=== PATIENT | female | born 1985 | race Caucasian/White ===

== ENCOUNTER → 2018-09-22 16:12 | Outpatient (CLI) | payer OTHER, SELFPAY ==
[2018-09-22 16:09] VITALS: BMI 42.9
[2018-09-22 16:31] LABS: Absolute Lymphocyte Count 1.69 X10^3/ul (0.83-4.51); Absolute Neutrophil Count 9.5 X10^3/uL (2.0-7.7); Basophil# 0.02 X10^3/uL; Basophil% 0.2 % (0-1); Eosinophil# 0.12 X10^3/uL; Hematocrit 39.7 % (37-47); Hemoglobin 12.9 g/dl (12.0-15.0); Lymphocyte # 1.69 X10^3/ul (4.0); Lymphocyte % 13.8 % (19-41); Mean Corp Hgb Conc 32.5 g/gl (32-36); Mean Corpuscular Hgb 25.3 pg (27.0-32.0); Mean Corpuscular Volume 77.8 fL (81-99); Mean Platelet Vol. 12.9 fl (6.2-12.0); Monocyte# 0.94 X10^3/uL; Monocyte% 7.7 % (0-10); Neutrophil # 9.48 X10^3/uL (2.7-7.7); Neutrophil % 77.1 % (47-70); Platelet Count 225 K/mm3 (150-450); RBC Distribution Width CV 14.1 % (11.6-14.6); RBC Distribution Width SD 38.8 fl (35.1-43.9); White Blood Count 12.3 K/mm3 (4.4-11.0)
[2018-09-22 16:32] LABS: POSITIVE COUNT NO; POSITIVE DIFFERENTIAL NO; POSITIVE MORPHOLOGY NO
[2018-09-22 16:51] LABS: Glucose Challenge Gest 1H 50g 98 mg/dL (70-140)
[2018-09-22 17:42] LABS: HIV - WCH Non-Reactive (Nonreactive); Rubella IgG 139.5 IU/mL
[2018-09-22 19:16] LABS: Chlamydia Trachomatis by PCR Negative (Negative); Neisserai gonorrhoeae by PCR Negative (Negative); Probe Check PASS; Sample Adequacy Control PASS; Specimen Processing Control PASS
[2018-09-24 01:45] LABS: Rapid Plasmin Reagin (RPR) NONREACTIVE (NONREACTIVE)
[2018-09-24 12:26] LABS: HEPATITIS B SURFACE AG Negative (Negative)
[2018-09-27 10:21] LABS: HPV APTIMA, High Risk Negative (Negative)
== END ==
PROVIDERS: Family Provider Family Medicine; PCP Family Medicine; Referring Provider Obstetrics & Gynecology; Visit Provider Obstetrics & Gynecology
DX: O99.210 Obesity complicating pregnancy, unspecified trimester (principal); Z3A.00 Weeks of gestation of pregnancy not specified; Z12.4 Encounter for screening for malignant neoplasm of cervix
CPT/HCPCS: 36415; 82950; 85025; 86592; 86703; 86762; 86850; 86900; 87086; 87088; 87340; 87491; 87591; 87624; 88175; G0145

== ENCOUNTER → 2018-12-14 11:45 | Outpatient (CLI) | payer OTHER, SELFPAY ==
[2018-12-14 11:37] VITALS: BMI 42.9
== END ==
PROVIDERS: Family Provider Family Medicine; PCP Family Medicine; Referring Provider Nurse Practitioner Women's Health; Visit Provider Nurse Practitioner Women's Health
DX: Z34.90 Encounter for supervision of normal pregnancy, unspecified, unspecified trimester (principal)
CPT/HCPCS: 36415

== ENCOUNTER → 2019-02-07 11:52 | Outpatient (CLI) | payer OTHER, SELFPAY ==
[2019-02-07 11:08] VITALS: BMI 42.9
[2019-02-07 12:41] LABS: Absolute Lymphocyte Count 1.68 X10^3/uL (0.83-4.51); Absolute Neutrophil Count 8.5 X10^3/uL (2.0-7.7); Basophil# 0.03 X10^3/uL; Basophil% 0.3 % (0-1); Eosinophil# 0.12 X10^3/uL; Eosinophils% 1.1 % (0-5); Hematocrit 33.8 % (37-47); Hemoglobin 10.9 g/dL (12.0-15.0); Lymphocyte # 1.68 X10^3/ul (4.0); Lymphocyte % 15.4 % (19-41); Mean Corp Hgb Conc 32.2 g/dL (32-36); Mean Corpuscular Hgb 26.5 pg (27.0-32.0); Mean Platelet Vol. 12.4 fl (6.2-12.0); Monocyte# 0.55 X10^3/uL; NRBC Flagged by Analyzer 0 % (0-5); Neutrophil % 77.8 % (47-70); Platelet Count 257 K/mm3 (150-450); RBC Distribution Width CV 12.9 % (11.6-14.6); RBC Distribution Width SD 38.5 fl (35.1-43.9); Red Blood Count 4.12 M/mm3 (4.2-5.4); White Blood Count 10.9 K/mm3 (4.4-11.0)
[2019-02-07 12:45] LABS: Glucose Challenge Gest 1H 50g 98 mg/dL (70-140)
== END ==
PROVIDERS: Nurse Practitioner Women's Health; Family Provider Family Medicine; PCP Family Medicine; Referring Provider Obstetrics & Gynecology; Visit Provider Obstetrics & Gynecology
DX: O09.90 Supervision of high risk pregnancy, unspecified, unspecified trimester (principal); Z3A.00 Weeks of gestation of pregnancy not specified
CPT/HCPCS: 36415; 82950; 85025; 86850; 86900; 86901

== ENCOUNTER → 2019-03-16 11:56 | Outpatient (CLI) | payer OTHER, SELFPAY ==
[2019-03-07 10:29] VITALS: BMI 42.9
--- NOTE | 2019-03-16 11:58 | US_ITS ---
STUDY: SECOND AND THIRD TRIMESTER OBSTETRICAL ULTRASOUND - LIMITED REASON FOR EXAM: Female, 33 years old growth. LMP: July 29, 2018. PRIOR ULTRASOUND: None. TECHNIQUE: Transabdominal TECHNICAL QUALITY: Adequate. FINDINGS: There is a single intrauterine fetus. The fetus is in a cephalic presentation. There is demonstrated cardiac activity with a heart rate of 140 bpm. There is a normal amniotic fluid volume. The largest amniotic fluid pocket measures 4.4 cm. The amniotic fluid index (DWAYNE) is within normal limits. The placenta is posterior in location and is not low lying. There are Grade 1 placental changes. The cervix measures 3.2 cm in length. BIOMETRY: BPD: 8.14 cm: 32 weeks, 5 days HC: 29.34 cm: 32 weeks, 3 days AC: 28.11 cm: 32 weeks, 2 days FL: 6.03 cm: 31 weeks, 3 days Age by LMP: 32 weeks, 6 days. RAYMUNDO by LMP: May 05, 2019. age by current US: 32 weeks, 2 days. RAYMUNDO by current US: May 09, 2019. Estimated weight: 1878 grams, +/- 274 grams, 17 percentile. US/OB Limited With Biometrics IMPRESSION: Single live intrauterine gestation with mean gestational age of 32 weeks and 2 days. Electronically Signed: Hu Llamas, at 13:16 EST , Service support ,
== END ==
PROVIDERS: Family Provider Family Medicine; PCP Family Medicine; Referring Provider Nurse Practitioner Women's Health; Visit Provider Nurse Practitioner Women's Health
DX: O09.90 Supervision of high risk pregnancy, unspecified, unspecified trimester (principal); Z3A.00 Weeks of gestation of pregnancy not specified
CPT/HCPCS: 76816

== ENCOUNTER → 2019-04-13 08:54 | Outpatient (CLI) | payer OTHER, SELFPAY ==
[2019-03-21 09:32] VITALS: BMI 42.9
[2019-04-04 09:24] VITALS: BMI 42.9
--- NOTE | 2019-04-13 08:55 | US_ITS ---
STUDY: SECOND AND THIRD TRIMESTER OBSTETRICAL ULTRASOUND REASON FOR EXAM: Female, 33 years old . growth. LMP: July 29, 2018. TECHNIQUE: Transabdominal TECHNICAL QUALITY: Limited. Examination limited due to obesity. PRIOR ULTRASOUND: Comparison is made with prior examination dated March 16, 2019. FINDINGS: There is a single intrauterine fetus. The fetus is in a cephalic presentation. There is demonstrated cardiac activity with a heart rate of 123 bpm. There is a normal amniotic fluid volume. The largest amniotic fluid pocket measures 3.6 cm. The amniotic fluid index (DWAYNE) is 9.8 cm. The placenta is posterior in location and is not low lying. There are Grade 2 placental changes. The cervix measures 3.1 cm in length. The bilateral adnexal regions are normal. BIOMETRY: BPD: 9.01 cm: 36 weeks, 3 days HC: 32.91 cm: 37 weeks, 2 days AC: 33.16 cm: 37 weeks, 0 days FL: 6.77 cm: 34 weeks, 5 days CI: 83% FL/BPD: 75% FL/HC: FL/AC: 20% HC/AC: 0.99 age by current US: 36 weeks, 0 days. RAYMUNDO by current US: May 11, 2019. Estimated weight: 2952 grams, +/- 437 grams, 42 %. age by prior US: 36 weeks, 2 days. RAYMUNDO by prior US: May 09, 2019. Age by LMP: 36 weeks, 6 days. RAYMUNDO by LMP: May 05, 2019. US/OB Limited With Biometrics IMPRESSION: Single live think uterine gestation with a mean gestational age of 36 weeks and 2 days. The measurements obtained today fall within the normal expected range. Electronically Signed: Hu Llamas, at 10:00 EST , Service support ,
== END ==
PROVIDERS: Family Provider Family Medicine; PCP Family Medicine; Referring Provider Obstetrics & Gynecology; Visit Provider Obstetrics & Gynecology
DX: O09.90 Supervision of high risk pregnancy, unspecified, unspecified trimester (principal)
CPT/HCPCS: 76816; 87077; 87081; 87186

== ENCOUNTER 2019-05-11 12:45 | Inpatient (IN) | payer OTHER, SELFPAY ==
[2019-05-02 08:50] VITALS: BMI 42.9
[2019-05-11 12:09] VITALS: BMI 49.6
[2019-05-11] MEDS: Lactated Ringers 1,000 ML 50 ML IV (13:30)
[2019-05-11 13:48] LABS: Absolute Lymphocyte Count 1.52 X10^3/uL (0.83-4.51); Absolute Neutrophil Count 10.7 X10^3/uL (2.0-7.7); Basophil# 0.03 X10^3/uL; Basophil% 0.2 % (0-1); Eosinophil# 0.04 X10^3/uL; Eosinophils% 0.3 % (0-5); Hematocrit 38.7 % (37-47); Hemoglobin 12.6 g/dL (12.0-15.0); Lymphocyte # 1.52 X10^3/ul (4.0); Lymphocyte % 11.5 % (19-41); Mean Corp Hgb Conc 32.6 g/dL (32-36); Mean Corpuscular Hgb 25.9 pg (27.0-32.0); Mean Corpuscular Volume 79.5 fL (81-99); Monocyte# 0.86 X10^3/uL; Monocyte% 6.5 % (0-10); NRBC Flagged by Analyzer 0 % (0-5); Neutrophil # 10.68 X10^3/uL (2.7-7.7); Platelet Count 274 K/mm3 (150-450); RBC Distribution Width CV 13.3 % (11.6-14.6); Red Blood Count 4.87 M/mm3 (4.2-5.4); White Blood Count 13.2 K/mm3 (4.4-11.0)
[2019-05-11 13:58] VITALS: BMI 48.8
[2019-05-11] MEDS: Oxytocin 30 units/NS 500 ml 30 UNITS/500 ML IV.SOLN IV (15:18)
[2019-05-11] MEDS: Lactated Ringers 500 ML 999 ML IV (21:11)
[2019-05-11] MEDS: Ondansetron 4 MG/2 ML Vial IV (21:16)
[2019-05-11] MEDS: fentaNYL-bupivacaine (epidural) 100 ML BAG EPIDURAL (22:21)
[2019-05-11] MEDS: Lactated Ringers 1,000 ML 200 ML IV (23:55)
[2019-05-12] MEDS: Mag Hydrox/Al Hydrox/Simeth 30 ML UDC PO (01:45)
--- NOTE | 2019-05-12 03:14 | PCM.HPOB.BLA ---
- Problem List (1) Oligohydramnios Status: Acute (2) Post-dates Status: Acute (3) Anemia affecting Status: Acute Qualifiers: Comment: iron repeat cbc 36 weeks (4) GBS (group B Streptococcus carrier), +RV culture, currently Status: Acute Comment: treat in labor (5) Obesity affecting Status: Acute Qualifiers: Comment: 1 TM glucola, discussed weight gain; growth US Q4w and weekly NST 32wk. adequate growth on 04/14 (6) Status: Acute Qualifiers: Comment: carrier, genetic screen declined. AFP negative. Anatomy US normal (7) Rh negative status during Status: Acute Qualifiers: Comment: Rhogam 28 wk, pp and prn (8) Supervision of high risk , antepartum Status: Acute Comment: PRR RAYMUNDO 05/05/19 Girl dylan Ned History and Physical Date of Admission: 05/11/19 Intake Vital Signs 05/11/19 Height 5 ft 5.5 in 05/11/19 Weight: 303 lb 05/11/19 BP 124/90 H 05/11/19 BMI 42.9 Intake Visit Reasons: est ob 40w Chief Complaint: est ob State Game Protector Required: No Is patient in pain?: No Allergies clindamycin Allergy (Mild, Verified 05/11/19 12:10) rash Medications Inulin [Fiber Gummies] 2 gm PO DAILY 05/11/19 [History Confirmed 05/11/19] Pnv No.103/Folic/Om3s/Fish Oil [ Gummies] 2 ea PO DAILY 05/11/19 [History Confirmed 05/11/19] Last Menstral Period: 07/29/18 Zika: Zika virus screening: Negative : No PFSH PFSH Family History Grandmother Hypertension Grandfather Hypertension Atrial fibrillation Lung cancer Other Heart disease Social History (Updated 05/11/19 @ 21:35 by Odessa Valdes MD) Smoking Status: Never smoker alcohol intake: never substance use type: does not use caffeine: Yes what type of physical activity do you participate in: none seatbelt use: always do you feel safe at home: Yes additional social history: Vnxxmqk-Wqikvlb-Shavngas 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 she denies any vb lof admits good fm and denies any regular contractions OB Visit RAYMUNDO Calculator Estimated Delivery Date Method Current WG Current Estimate 05/05/19 LMP (Certain) 40w 6d Expected Delivery Route/Plan Labor Preferences- labor support person: Karan pain management options preferred: prefers limited intervention cut cord/dad catch: cord : yes PP control planned: discussed possible routes of delivery and associated risks: [] special requests: [] Specific Issue/Plans flu vaccine: employer tdap vaccine: given rhogam: given 02/21 LARC form signed: declines Problem list reviewed and updated with the most current plan of care details and appropriate orders placed. Relevant counseling for the gestational age provided. Continue routine care and follow up unless otherwise noted in visit notes/problem list details movement and labor precautions reviewed. Initial Weight: 285 lb Date EGA Weight BP Urine Prot Glucose FHR FuHt Pres Mov CTX Dilation Effaced St Visit Note 10/19/18 11w 5d 279 lb (-6 lb) 122/84 150 no vb cramping better fatigue still some N/V declines meds 11/15/18 15w 4d 278 lb (-7 lb) 120/80 Negative Negative 150 nausea improved, energy improving. 12/14/18 19w 5d 282 lb 4 oz (-2 lb 12 oz) 132/80 Negative Negative 146 No VB, LOF. doing well. Anatomy US today 01/11/19 23w 5d 280 lb 4 oz (-4 lb 12 oz) 124/82 Negative Negative 154 No VB, LOF. Doing well 02/07/19 27w 4d 285 lb 4 oz (+4 oz) 130/84 Negative Negative 135 27 Good FM. No vb, lof 02/21/19 29w 4d 285 lb (+0 oz) 122/78 Negative Negative 135 31 no vb lof good fm no regular ctx 03/07/19 31w 4d 286 lb (+16 oz) 120/80 Negative Negative 145 32 No VB, LOF. Doing well. Good FM 03/16/19 32w 6d 290 lb 6 oz (+5 lb 6 oz) 123/79 Negative Negative 145 34 no vb lof good fm 03/21/19 33w 4d 289 lb (+4 lb) 113/74 Negative Negative 135 03/30/19 34w 6d 291 lb 4 oz (+6 lb 4 oz) 123/78 Negative Negative 150 35 Reactive NST. No VB, LOF. Good FM 04/13/19 36w 6d 292 lb (+7 lb) 136/80 Negative Negative 130 36 Cephalic 1.5 60 -1 no vb lof good fm no reg ctx reactive NST 04/18/19 37w 4d 292 lb 6 oz (+7 lb 6 oz) 138/90 130/88 Negative Negative 132 38 Cephalic 1.5 -1 Good Fm. NO VB, LOF, reg CTX. 05/02/19 39w 4d 303 lb 2 oz (+18 lb 2 oz) 120/82 Negative Negative 130 1.5 SM no vb lof good fm no regular ctx 05/11/19 40w 6d 303 lb (+18 lb) 124/90 Negative Negative Notes Visit Date: 05/11/19 ??No visit notes to display Visit Date: 05/02/19 ??No visit notes to display Visit Date: 04/18/19 ??No visit notes to display Visit Date: 04/13/19 ??No visit notes to display Visit Date: 03/30/19 ??Reactive NST. No VB, LOF. Good FM ??BERNY Gonzalez on 03/30/19 Visit Date: 03/21/19 ??No visit notes to display Visit Date: 03/16/19 ??no vb lof good fm ??Odessa Valdes MD on 03/17/19 Visit Date: 03/07/19 ??No VB, LOF. Doing well. Good FM ??BERNY Gonzalez on 03/07/19 Visit Date: 02/21/19 ??no vb lof good fm no regular ctx ??Odessa Valdes MD on 02/21/19 Visit Date: 02/07/19 ??Good FM. No vb, lof ??BERNY Gonzalez on 02/07/19 Visit Date: 01/11/19 ??No VB, LOF. Doing well ??ANDREA GonzalezC on 01/11/19 Visit Date: 12/14/18 ??No VB, LOF. doing well. Anatomy US today ??BERNY Gonzalez on 12/14/18 Visit Date: 11/15/18 ??nausea improved, energy improving. ??Odessa Valdes MD on 11/15/18 Visit Date: 10/19/18 ??no vb cramping better fatigue still some N/V declines meds ??Odessa Valdes MD on 10/19/18 ACOG First Trimester First Trimester: Desire for , Alcohol, Tobacco Cessation, Illicit/Recreational Drug/Substance Use, Intimate Partner Violence, Barriers to care, Unstable Housing, Communication Barriers, Environmental/Work Hazards, Anticipated Course of Care, Toxoplasmosis Precations, Use of Any medications, Sexual activity, Exercise, Dental Care, Sauna/Hot tub use, Seat Belt use, Childbirth classes/Hospital facilities, , Travel, Indications for US and Screening for Aneuploidy Second Trimester Second Trimester: Signs and Symptoms of Labor, Selecting a care provider, Reproductive Life Planning, Care Planning, Tobacco Cessation, Depression/Anxiety and Intimate Partner Violence Third Trimester Third Trimester: Pain Management Plans, Labor support person(s), Immediate Larc, Movement Monitoring and Feeding Yes ; discussed Trial of Labor after Counseling or discussed Circumcision preference Diagnostics Diagnostics Diagnostics Blood Type A NEGATIVE 05/11/19 Antibody Screen NEGATIVE 05/11/19 Glucose 1 Hr 50 gm 98 mg/dL (70-140) 02/07/19 Hgb 12.6 g/dL (12.0-15.0) 05/11/19 Hct 38.7 % (37-47) 05/11/19 Details: HIV: Urine Culture: Sequential Screen: NIPT Screen: ROS Const Reports system reviewed and no additional complaints, except as docu Card Reports system reviewed and no additional complaints, except as docu Resp Reports system reviewed and no additional complaints, except as docu GI Reports system reviewed and no additional complaints, except as docu, Reports nausea Reports system reviewed and no additional complaints, except as docu Musc Reports system reviewed and no additional complaints, except as docu Exam Const General: cooperative, healthy appearing, comfortable, anxious HENMT Head: normal to inspection Nose: external nose normal Face and sinus: normal facial exam Neck Neck: normal visual inspection, full ROM, no lymphadenopathy Thyroid: thyroid normal Chest Chest palpation & inspection: normal inspection of the chest Resp Effort & Inspection: normal respiratory effort GI Inspection: normal to inspection Palpation: soft, other (gravid uterus) Other: infant vertex and appropriate size for gestational age Other: Cervical Exam: Extrem General: pedal edema Results POC Urinalysis 2 Dip (Clinic) Office Urine Glucose Negative Last Edit by Isis Garay on 05/11/19 12:16 Office Urine Protein Negative Last Edit by Isis Garay on 05/11/19 12:16 Assessment & Plan Problems 1. GBS (group B Streptococcus carrier), +RV culture, currently O99.820 2. Anemia affecting in second trimester O99.012 3. Rh negative status during in second trimester O26.892 4. Obesity affecting in second trimester O99.212 5. 40 weeks gestation of Z3A.40 6. Supervision of high risk , antepartum O.90 Plan dwayne 4 cm recommend IOL now plan pitocin and gbs pos- PCN epidural PRN Orders Orders: POC Urinalysis 2 Dip (Clinic) Today Coding Level of Care Code OB Routine Diagnoses GBS (group B Streptococcus carrier), +RV culture, currently O99.820 Anemia affecting in second trimester O99.012 ??Trimester: second trimester Rh negative status during in second trimester O26.892 ??Trimester: second trimester Obesity affecting in second trimester O99.212 ??Trimester: second trimester 40 weeks gestation of Z3A.40 ??Weeks of gestation: 40 weeks Supervision of high risk , antepartum O09.90
--- NOTE | 2019-05-12 03:17 | OP.PCM_ITS ---
Problem List (1) Oligohydramnios Status: Acute (2) Post-dates Status: Acute (3) Anemia affecting Status: Acute Qualifiers: Comment: iron repeat cbc 36 weeks (4) GBS (group B Streptococcus carrier), +RV culture, currently Status: Acute Comment: treat in labor (5) Obesity affecting Status: Acute Qualifiers: Comment: 1 TM glucola, discussed weight gain; growth US Q4w and weekly NST 32wk. adequate growth on 04/14 (6) Status: Acute Qualifiers: Comment: carrier, genetic screen declined. AFP negative. Anatomy US normal (7) Rh negative status during Status: Acute Qualifiers: Comment: Rhogam 28 wk, pp and prn (8) Supervision of high risk , antepartum Status: Acute Comment: PRR RAYMUNDO 05/05/19 Girl dylan Ned Vaginal Delivery Maternal Presentation: Medically Indicated Induction iol oligo Method of Induction: Pitocin Amniotic Membrane Rupture Type: Artificial Amniotic Fluid Description: Clear Final RAYMUNDO: 05/05/19 Gestational age: 41 Weeks and 0 Days Date of Procedure: 05/12/19 Pre-Operative Diagnosis: iol oligo Post-Operative Diagnosis: same Surgery/ Procedure Performed: Spontaneous Vaginal Delivery Type of Anesthesia: Epidural Description of Procedure: Patient began pushing and delivered the head in the JAX presentation. The head was delivered atraumatically and a loose nuchal cord ?1 was identified and easily reduced over the 's head. The anterior and posterior shoulders delivered without complication followed by the rest of the infant and the infant was placed on the maternal abdomen. Delayed cord clamping was employed for approximately 60 seconds. Cord was clamped and cut and gentle traction was applied to the cord and the placenta delivered spontaneously immediately following it was noted to be intact with three-vessel cord. The perineum and vagina were inspected and noted to have a second-degree perineal laceration that was repaired in the usual fashion with 3-0 Vicryl Rapide. EBL was 300 cc. Patient and infant tolerated delivery well. Placental Delivery Description: Spontaneous Placenta Disposition: [facility] Cord Entanglement: Around neck x 1, loose Estimated Blood Loss: 300 A gender: Female (1 minute): 8 (5 minute): 9 Episiotomy Description: None Laceration: Perineal Extension/lac, 2nd degree Medications given after delivery: IV Pitocin Complications: None Multi Select Codes - Urinary/Genital Urinary/Genital CPT Codes: 57678 Vaginal Delivery [facility]
[2019-05-12] MEDS: Ondansetron 4 MG/2 ML Vial IV (03:20)
[2019-05-12] MEDS: fentaNYL-bupivacaine (epidural) 100 ML BAG EPIDURAL (03:26)
[2019-05-12] MEDS: Oxytocin 30 units/NS 500 ml 30 UNITS/500 ML IV.SOLN 334 UNITS IV (04:08)
[2019-05-12 07:55] VITALS: BP 110/59; PULSE 92; RESP 14; TEMP 36.6
[2019-05-12 12:30] VITALS: BP 118/70; PULSE 94; RESP 16; TEMP 36.6
[2019-05-12 16:00] VITALS: BP 120/79; PULSE 116; RESP 20; TEMP 36.4
[2019-05-12] MEDS: Naproxen 250 MG Tablet 500 MG PO (16:00)
[2019-05-12 20:34] VITALS: BP 91/47; PULSE 90; RESP 18; TEMP 36.3; O2SAT 97
[2019-05-12] MEDS: Senna/Docusate Sodium 1 Tablet PO (20:52)
[2019-05-12] MEDS: Acetaminophen 500 MG Tablet 1000 MG PO (20:52)
[2019-05-13 00:49] VITALS: BP 102/58; PULSE 84; RESP 18; TEMP 36.3; O2SAT 97
[2019-05-13 03:56] VITALS: BP 107/63; PULSE 63; RESP 16; TEMP 36.8; O2SAT 96
[2019-05-13 08:00] VITALS: BP 105/53; PULSE 78; RESP 16; TEMP 36.4
[2019-05-13 14:00] VITALS: BP 114/62; PULSE 87; RESP 18; TEMP 36.7
--- NOTE | 2019-05-13 18:03 | PCM.PN.OB ---
Patient Problems: Active and Suspected Problems (Last Reviewed 05/11/19 @ 12:10 by Isis Garay) Oligohydramnios (Acute) Post-dates (Acute) Subjective: doing well no complaints pain controlled no CP SOB N V ambulating well tolerating po lochia moderate, going well - Physical Exam Vitals/I&O's: Vital Signs Temp Pulse Resp BP Pulse Ox 98.1 F 87 18 114/62 96 05/13/19 14:00 05/13/19 14:00 05/13/19 14:00 05/13/19 14:00 05/13/19 03:56 Oxygen Delivery Method Room Air Weight: 302 lb 11.115 oz Body Mass Index (BMI) 48.8 Intake and Output for Last 24 Hours 05/11/19 05/12/19 05/13/19 23:59 23:59 23:59 Intake Total 1744.23 / 1744.23 1473.4 / 1473.4 Output Total 2200 / 2200 Balance 1744.23 / 1744.23 -726.6 / -726.6 General: Alert, Oriented x3 Current Medications Acetaminophen (Tylenol) 1,000 mg PO Q8H PRN PRN PRN Reason: Pain Score 1-3/10 Last Admin: 05/12/19 20:52 Dose: 1,000 mg Documented by: Bisacodyl (Dulcolax) 10 mg RECTAL UD PRN PRN Reason: If no BM Dibucaine (Dibucaine) 1 applic TOPICAL TID PRN PRN; Protocol PRN Reason: Discomfort Hydrocortisone (Hytone) 1 applic TOPICAL TID PRN PRN; Protocol PRN Reason: Discomfort Methylergonovine Maleate (Methergine) 0.2 mg IM X1 PRN PRN Reason: Excess bleeding/uterine atony Naproxen (Naprosyn) 500 mg PO Q8H PRN PRN PRN Reason: Pain Score 1-3/10 Last Admin: 05/12/19 16:00 Dose: 500 mg Documented by: Ondansetron HCl (Zofran) 4 mg IV Q4H PRN PRN PRN Reason: Nausea Oxycodone HCl (Oxyir) 5 - 10 mg PO Q4H PRN PRN PRN Reason: Pain Score 4-10/10 Senna/Docusate Sodium (Senokot-S, Marci-Colace) 1 - 2 tablet PO DAILY PRN PRN PRN Reason: Constipation Last Admin: 05/12/19 20:52 Dose: 1 tablet Documented by: Simethicone (Mylicon) 80 mg PO PCHS PRN PRN Reason: Indigestion/Stomach pain Sodium Chloride () 5 - 15 ml IV UD PRN PRN Reason: SALINE FLUSH Medical Necessity - Tobacco Use Smoking Status: Never smoker Assessment/Plan All Active Problems (Last Reviewed 05/11/19 @ 12:10 by Isis Garay) Oligohydramnios (Acute) Post-dates (Acute) GBS (group B Streptococcus carrier), +RV culture, currently (Acute) Anemia affecting (Acute) Rh negative status during (Acute) Obesity affecting (Acute) (Acute) Supervision of high risk , antepartum (Acute) s/p PPD # 1 1. routine post delivery care 2. breast feeding- support given 3. rh positive 4. rubella immune diabetes- FBS
[2019-05-13 19:44] VITALS: BP 123/71; PULSE 90; RESP 16; TEMP 36.4
[2019-05-13] MEDS: Senna/Docusate Sodium 1 Tablet PO (23:10)
[2019-05-14 01:09] VITALS: BP 118/78; PULSE 82; RESP 16; TEMP 36.4
[2019-05-14 10:00] VITALS: BP 125/75; PULSE 90; RESP 16; TEMP 36.4
--- NOTE | 2019-05-14 10:02 | PCM.PN.OB ---
Patient Problems: Active and Suspected Problems (Last Reviewed 05/11/19 @ 12:10 by Isis Garay) Oligohydramnios (Acute) Post-dates (Acute) Subjective: doing well no complaints pain controlled no CP SOB N V ambulating well tolerating po lochia moderate, going well - Physical Exam Vitals/I&O's: Vital Signs Temp Pulse Resp BP Pulse Ox 97.6 F L 82 16 118/78 96 05/14/19 01:09 05/14/19 01:09 05/14/19 01:09 05/14/19 01:09 05/13/19 03:56 Oxygen Delivery Method Room Air Weight: 302 lb 11.115 oz Body Mass Index (BMI) 48.8 Intake and Output for Last 24 Hours 05/12/19 05/13/19 05/14/19 23:59 23:59 23:59 Intake Total 1473.4 / 1473.4 Output Total 2200 / 2200 Balance -726.6 / -726.6 General: Alert, Oriented x3 Current Medications Acetaminophen (Tylenol) 1,000 mg PO Q8H PRN PRN PRN Reason: Pain Score 1-3/10 Last Admin: 05/12/19 20:52 Dose: 1,000 mg Documented by: Bisacodyl (Dulcolax) 10 mg RECTAL UD PRN PRN Reason: If no BM Dibucaine (Dibucaine) 1 applic TOPICAL TID PRN PRN; Protocol PRN Reason: Discomfort Hydrocortisone (Hytone) 1 applic TOPICAL TID PRN PRN; Protocol PRN Reason: Discomfort Methylergonovine Maleate (Methergine) 0.2 mg IM X1 PRN PRN Reason: Excess bleeding/uterine atony Naproxen (Naprosyn) 500 mg PO Q8H PRN PRN PRN Reason: Pain Score 1-3/10 Last Admin: 05/12/19 16:00 Dose: 500 mg Documented by: Ondansetron HCl (Zofran) 4 mg IV Q4H PRN PRN PRN Reason: Nausea Oxycodone HCl (Oxyir) 5 - 10 mg PO Q4H PRN PRN PRN Reason: Pain Score 4-10/10 Senna/Docusate Sodium (Senokot-S, Marci-Colace) 1 - 2 tablet PO DAILY PRN PRN PRN Reason: Constipation Last Admin: 05/13/19 23:10 Dose: 1 tablet Documented by: Simethicone (Mylicon) 80 mg PO PCHS PRN PRN Reason: Indigestion/Stomach pain Sodium Chloride () 5 - 15 ml IV UD PRN PRN Reason: SALINE FLUSH Medical Necessity - Tobacco Use Smoking Status: Never smoker Assessment/Plan All Active Problems (Last Reviewed 05/11/19 @ 12:10 by Isis Garay) Oligohydramnios (Acute) Post-dates (Acute) GBS (group B Streptococcus carrier), +RV culture, currently (Acute) Anemia affecting (Acute) Rh negative status during (Acute) Obesity affecting (Acute) (Acute) Supervision of high risk , antepartum (Acute) s/p PPD # 2 1. routine post delivery care 2. breast feeding- support given 3. rh negative- rhogam PRN 4. rubella immune
--- NOTE | 2019-05-14 10:03 | DCINST_ITS ---
Discharge Diet: No Restrictions Discharge Activity: Return to Normal Activity, May not drive while taking narcotic pain medications., May Shower May resume sexual activity in: 4-6 weeks Call your doctor if your incision/area has: Continuous Slow Oozing, Sudden Increased Bleeding, Increased Pain/ Swelling, Increased Redness, Foul Smelling Discharge Additional Instructions: If you experience any of the following, contact your healthcare provider. * Bleeding that soaks a pad every hour for 2 hours * Fever 100.4 or higher * Unrelieved incision or abdominal pain * Swelling, redness, discharge or bleeding from your incision or episiotomy site * Your incision begins to separate * Problems urinating (including inability to urinate or burning while urinating). * Visual changes * Severe headache * Flu-like symptoms * Pain or redness in one of both of your breasts * Pain, warmth, tenderness or swelling in your legs, especially the calf area * Frequent nausea and vomiting * Symptoms of depression or anxiety If you experience any of the following, call 911 or go to the nearest Emergency Room. * Chest pain * Problems breathing * Seizure activity * Partial or complete paralysis of a body part, slurred speech, weakness or drooping of the face, or a sudden inability to walk or hold your balance Allergies/Adverse Reactions: Allergies clindamycin Allergy (Mild, Verified 05/11/19 12:10) rash Medications to take at Discharge Inulin [Fiber Gummies] 2 gm PO DAILY 05/11/19 Pnv No.103/Folic/Om3s/Fish Oil [ Gummies] 2 ea PO DAILY 05/11/19 Please Follow Up With: Odessa Valdes MD - [phone] When: Call to make an appointment with your doctor in 6 weeks. If you had elevated Blood pressure or 4th degree laceration you will need to be seen in 2 weeks. Primary Care Physician: Margret Mcclure PA-C [Primary Care Provider] - Test Results: Test results from this visit will be discussed in further detail at your follow- up appointment, if applicable.
--- NOTE | 2019-05-14 10:03 | PCM.DCVAG ---
Discharge Diet: No Restrictions Discharge Activity: Return to Normal Activity, May not drive while taking narcotic pain medications., May Shower May resume sexual activity in: 4-6 weeks Call your doctor if your incision/area has: Continuous Slow Oozing, Sudden Increased Bleeding, Increased Pain/ Swelling, Increased Redness, Foul Smelling Discharge Additional Instructions: If you experience any of the following, contact your healthcare provider. Bleeding that soaks a pad every hour for 2 hours Fever 100.4 or higher Unrelieved incision or abdominal pain Swelling, redness, discharge or bleeding from your incision or episiotomy site Your incision begins to separate Problems urinating (including inability to urinate or burning while urinating). Visual changes Severe headache Flu-like symptoms Pain or redness in one of both of your breasts Pain, warmth, tenderness or swelling in your legs, especially the calf area Frequent nausea and vomiting Symptoms of depression or anxiety If you experience any of the following, call 911 or go to the nearest Emergency Room. Chest pain Problems breathing Seizure activity Partial or complete paralysis of a body part, slurred speech, weakness or drooping of the face, or a sudden inability to walk or hold your balance Allergies/Adverse Reactions: Allergies clindamycin Allergy (Mild, Verified 05/11/19 12:10) rash Medications to take at Discharge Inulin [Fiber Gummies] 2 gm PO DAILY 05/11/19 Pnv No.103/Folic/Om3s/Fish Oil [ Gummies] 2 ea PO DAILY 05/11/19 Please Follow Up With: Odessa Valdes MD - [phone] When: Call to make an appointment with your doctor in 6 weeks. If you had elevated Blood pressure or 4th degree laceration you will need to be seen in 2 weeks. Primary Care Physician: Margret Mcclure PA-C [Primary Care Provider] - Test Results: Test results from this visit will be discussed in further detail at your follow-up appointment, if applicable.
== END 2019-05-14 12:35 | disposition home or self-care (01) | DRG 806 ==
PROVIDERS: Admitting Provider Obstetrics & Gynecology; Family Provider Family Medicine; PCP Family Medicine; Referring Provider Obstetrics & Gynecology; Visit Provider Obstetrics & Gynecology
DX: O99.824 Streptococcus B carrier state complicating childbirth (principal); O41.03X0 Oligohydramnios, third trimester, not applicable or unspecified; O70.1 Second degree perineal laceration during delivery; O99.214 Obesity complicating childbirth; E66.9 Obesity, unspecified; O69.81X0 Labor and delivery complicated by cord around neck, without compression, not applicable or unspecified; Z3A.41 41 weeks gestation of pregnancy; Z37.0 Single live birth
CPT/HCPCS: 59025; 59050; 85025; 85461; 86850; 86900; 86901; 90384; 99218; J7120; G0378; J2405; J2790

== ENCOUNTER → 2019-11-09 10:37 | Outpatient (CLI) | payer OTHER, SELFPAY ==
[2019-06-27 09:12] VITALS: BMI 48.8
[2019-11-09 11:48] LABS: hCG Titer Quant., Serum 28 mIU/mL (1-3)
== END ==
PROVIDERS: PCP Family Medicine; Referring Provider Obstetrics & Gynecology; Visit Provider Obstetrics & Gynecology
DX: N91.2 Amenorrhea, unspecified (principal)
CPT/HCPCS: 36415; 84702

== ENCOUNTER → 2019-11-16 16:41 | Outpatient (CLI) | payer OTHER, SELFPAY ==
[2019-06-27 09:12] VITALS: BMI 48.8
[2019-11-16 18:07] LABS: hCG Titer Quant., Serum 16 mIU/mL (1-3)
== END ==
PROVIDERS: PCP Family Medicine; Referring Provider Nurse Practitioner Women's Health; Visit Provider Nurse Practitioner Women's Health
DX: O20.0 Threatened abortion (principal); Z3A.00 Weeks of gestation of pregnancy not specified
CPT/HCPCS: 36415; 84702

== ENCOUNTER → 2019-11-19 11:22 | Outpatient (CLI) | payer OTHER, SELFPAY ==
[2019-06-27 09:12] VITALS: BMI 48.8
[2019-11-19 12:04] LABS: hCG Titer Quant., Serum 13 mIU/mL (1-3)
[2019-11-23 04:07] LABS: Dilute Prothrombin Time (dPT) 36.7 sec (0.0-55.0); Dilute Russell Viper Venom 37.6 sec (0.0-47.0); PTT-LA 36.5 sec (0.0-51.9)
[2019-11-23 13:26] LABS: Anti-Cardiolipin Ab, IgA, Qn < 9 APL U/mL (0-11); Anti-Cardiolipin Ab, IgG, Qn < 9 GPL U/mL (0-14); Anti-Cardiolipin Ab, IgM, Qn < 9 MPL U/mL (0-12); Beta-2-Glycoprotein I IgA <9 (0-25); Beta-2-Glycoprotein I IgG <9 (0-20); Beta-2-Glycoprotein I IgM <9 (0-32); Interpretation Comment: (.)
== END ==
PROVIDERS: PCP Family Medicine; Referring Provider Obstetrics & Gynecology; Visit Provider Obstetrics & Gynecology
DX: O20.0 Threatened abortion (principal); N91.2 Amenorrhea, unspecified; Z3A.00 Weeks of gestation of pregnancy not specified
CPT/HCPCS: 36415; 84702; 86146; 86147

== ENCOUNTER → 2020-07-18 11:08 | Outpatient (CLI) | payer BC, SELFPAY ==
[2020-07-18 09:31] VITALS: BMI 46.1
[2020-07-18 11:27] LABS: Absolute Lymphocyte Count 1.88 X10^3/uL (0.83-4.51); Absolute Neutrophil Count 7.4 X10^3/uL (2.0-7.7); Basophil# 0.04 X10^3/uL; Basophil% 0.4 % (0-1); Eosinophil# 0.08 X10^3/uL; Eosinophils% 0.8 % (0-5); Hematocrit 37.9 % (37-47); Hemoglobin 12.2 g/dL (12.0-15.0); Lymphocyte # 1.88 X10^3/ul (4.0); Lymphocyte % 18.7 % (19-41); Mean Corp Hgb Conc 32.2 g/dL (32-36); Mean Corpuscular Volume 80.8 fL (81-99); Mean Platelet Vol. 11.8 fl (6.2-12.0); Monocyte# 0.63 X10^3/uL; Monocyte% 6.3 % (0-10); NRBC Flagged by Analyzer 0 % (0-5); Neutrophil # 7.43 X10^3/uL (2.7-7.7); Neutrophil % 73.6 % (47-70); Platelet Count 259 K/mm3 (150-450); RBC Distribution Width CV 13.5 % (11.6-14.6); RBC Distribution Width SD 38.5 fl (35.1-43.9); Red Blood Count 4.69 M/mm3 (4.2-5.4); White Blood Count 10.1 K/mm3 (4.4-11.0)
[2020-07-18 11:47] LABS: Glucose Challenge Gest 1H 50g 100 mg/dL (70-140)
[2020-07-18 12:34] LABS: HIV - WCH Non-Reactive (Nonreactive); Hepatitis B Surface Antigen Non-Reactive (Nonreactive); Hepatitis C Antibody Non-Reactive (Nonreactive); Rubella IgG Reactive (Nonreactive)
[2020-07-18 14:11] LABS: Amphetamine Urine VISTA NEGATIVE (<1000 ng/mL); Barbiturate Urine VISTA NEGATIVE (< 200 ng/mL); Benzodiazepine Urine VISTA NEGATIVE (< 200 ng/mL); Cocaine Urine VISTA NEGATIVE (< 300 ng/mL); Ecstacy Urine VISTA NEGATIVE (< 500 ng/mL); Methadone Urine VISTA NEGATIVE (< 300 ng/mL); PCP Urine VISTA NEGATIVE (< 25 ng/mL); THC Urine VISTA NEGATIVE (< 50 ng/mL); Vista UDS pH Range 7
[2020-07-20 04:09] LABS: Chlamydia By Nucleic Acid AMP Negative (Negative)
[2020-07-20 05:10] LABS: Gonococcus By Nucleic Acid AMP Negative (Negative)
== END ==
PROVIDERS: PCP Family Medicine; Referring Provider Obstetrics & Gynecology; Visit Provider Obstetrics & Gynecology
DX: Z34.80 Encounter for supervision of other normal pregnancy, unspecified trimester (principal)
CPT/HCPCS: 36415; 80307; 82950; 85025; 86703; 86762; 86803; 86850; 86900; 86901; 87086; 87088; 87340; 87491; 87591

== ENCOUNTER → 2020-09-12 12:24 | Outpatient (CLI) | payer BC, SELFPAY ==
[2020-09-12 09:54] VITALS: BMI 46.5
== END ==
PROVIDERS: PCP Family Medicine; Referring Provider Obstetrics & Gynecology; Visit Provider Obstetrics & Gynecology
DX: O23.40 Unspecified infection of urinary tract in pregnancy, unspecified trimester (principal); Z3A.00 Weeks of gestation of pregnancy not specified
CPT/HCPCS: 87086; 87088

== ENCOUNTER → 2020-11-21 10:02 | Outpatient (CLI) | payer OTHER, SELFPAY ==
[2020-11-07 09:24] VITALS: BMI 46.5
[2020-11-21 10:43] LABS: Glucose Challenge Gest 1H 50g 91 mg/dL (70-140)
[2020-11-21 11:13] LABS: Absolute Lymphocyte Count 1.62 X10^3/uL (0.83-4.51); Basophil# 0.03 X10^3/uL; Basophil% 0.3 % (0-1); Eosinophil# 0.09 X10^3/uL; Eosinophils% 0.9 % (0-5); Hematocrit 34.8 % (37-47); Hemoglobin 11.2 g/dL (12.0-15.0); Lymphocyte # 1.62 X10^3/ul (0.83-4.51); Lymphocyte % 15.5 % (19-41); Mean Corp Hgb Conc 32.2 g/dL (32-36); Mean Corpuscular Hgb 25.7 pg (27.0-32.0); Mean Platelet Vol. 12.5 fl (6.2-12.0); Monocyte% 5.8 % (0-10); NRBC Flagged by Analyzer 0 % (0-5); Neutrophil # 8.04 X10^3/uL (2.7-7.7); Neutrophil % 77.1 % (47-70); Platelet Count 281 K/mm3 (150-450); RBC Distribution Width CV 12.8 % (11.6-14.6); RBC Distribution Width SD 36.7 fl (35.1-43.9); Red Blood Count 4.35 M/mm3 (4.2-5.4); White Blood Count 10.4 K/mm3 (4.4-11.0)
[2020-11-21 11:26] LABS: Syphilis Antibodies Non-reactive
== END ==
PROVIDERS: PCP Family Medicine; Referring Provider Obstetrics & Gynecology; Visit Provider Obstetrics & Gynecology
DX: Z13.1 Encounter for screening for diabetes mellitus (principal)
CPT/HCPCS: 36415; 82950; 85025; 86780; 86850; 86900; 86901

== ENCOUNTER → 2021-01-16 08:01 | Outpatient (CLI) | payer OTHER, SELFPAY ==
[2020-12-05 14:29] VITALS: BMI 46.5
--- NOTE | 2021-01-16 08:04 | US_ITS ---
STUDY: SECOND AND THIRD TRIMESTER OBSTETRICAL ULTRASOUND REASON FOR EXAM: Female, 35 years old growth at 36 weeks LMP: 05/06/2020 TECHNIQUE: Transabdominal TECHNICAL QUALITY: Adequate. PRIOR ULTRASOUND: None. FINDINGS: There is a single intrauterine fetus. The fetus is in a cephalic presentation. There is demonstrated cardiac activity with a heart rate of 136 bpm. There is a normal amniotic fluid volume. The largest amniotic fluid pocket measures 6.8 cm. The amniotic fluid index (DWAYNE) is 13.7 cm. The placenta is posterior and fundal in position. There are Grade 1 placental changes. The cervix measures 3.3 cm in length. The adnexal regions are not visualized. BIOMETRY: BPD: 8.55 cm: 34 weeks, 3 days HC: 32.22 cm: 36 weeks, 2 days AC: 33.3 cm: 37 weeks, 1 days FL: 6.7 cm: 34 weeks, 2 days CI: 78% FL/BPD: 78% FL/HC: FL/AC: 20% HC/AC: 0.97 age by current US: 35 weeks, 3 days. RAYMUNDO by current US: 02/17/2021. Estimated weight: 2853 grams, +/- 428 grams, 45 %. Age by LMP: 36 weeks, 3 days. RAYMUNDO by LMP: 02/10/2021. US/OB Limited With Biometrics IMPRESSION: Single live intrauterine gestation with mean gestational age of 35 weeks and 3 days. Electronically Signed: Hu Llamas MD at 15:11 EDT , Service support ,
== END ==
PROVIDERS: PCP Family Medicine; Referring Provider Obstetrics & Gynecology; Visit Provider Obstetrics & Gynecology
DX: Z34.80 Encounter for supervision of other normal pregnancy, unspecified trimester (principal)
CPT/HCPCS: 76816; 87077; 87081; 87186

== ENCOUNTER → 2021-01-30 13:27 | Outpatient (CLI) | payer OTHER, SELFPAY ==
--- NOTE | 2021-01-30 13:29 | US_ITS ---
EXAM: US BIOPHYSICAL PROFILE WITHOUT NON-STRESS TESTING : 1985 CLINICAL INDICATION: well being TECHNIQUE: Real-time ultrasound of the maternal pelvis for biophysical profile evaluation with image documentation. This report was created using Eda[employer] report generation technology. COMPARISON: None. FINDINGS: BREATHING MOVEMENTS: Present. Score 2/2. GROSS BODY MOVEMENTS: Present. Score 2/2. TONE: Present. Score 2/2. QUALITATIVE AMNIOTIC FLUID VOLUME: DWAYNE measures 14.1 cm. HEART RATE: heart rate is 140 bpm. PRESENTATION: There is an intrauterine gestation in the cephalic position. PLACENTA: Placenta is posterior. OTHER FINDINGS: Biophysical profile is 8/8. US/Biophysical Prof W/O Non Stres IMPRESSION: Intrauterine gestation with a biophysical profile score of 8/8. heart rate is 140 bpm. DWAYNE measures 14.1 cm. at 1802 Reported and signed by: Clayton Moreau MD Electronically Signed: Clayton Moreau MD at 18:01 EDT Tel , Service support ,
== END ==
PROVIDERS: Referring Provider Obstetrics & Gynecology; Visit Provider Obstetrics & Gynecology
DX: O28.8 Other abnormal findings on antenatal screening of mother (principal); Z3A.00 Weeks of gestation of pregnancy not specified
CPT/HCPCS: 76819

== ENCOUNTER → 2021-02-07 13:27 | Outpatient (CLI) | payer OTHER, SELFPAY | PROVIDERS: Visit Provider Obstetrics & Gynecology | DX: Z34.90 Encounter for supervision of normal pregnancy, unspecified, unspecified trimester (principal) | CPT/HCPCS: 87635; U0005; U0003 ==

== ENCOUNTER 2021-02-08 07:05 | Inpatient (IN) | payer OTHER, SELFPAY ==
[2021-02-08] VITALS (110 sets, daily range): BP systolic 89–143; BP diastolic 43–91; PULSE 64–101; TEMP 36.2–37.1; O2SAT 78–100; BMI 47.6
--- NOTE | 2021-02-08 07:36 | HP.PCM.OB_ITS ---
HPI - General General Date of Admission: 02/08/21 HPI Narrative TAVO ECHEVARRIA, is a 35 F who presents for IOL for decreased movement and term . Maternal Data Information RAYMUNDO Calculator Estimated Delivery Date Method Current WG Current Estimate 02/10/21 LMP (Certain) 39w 5d Other Estimates 02/10/21 Ultrasound #1 39w 5d PFSH PFS Medical History (Updated 02/08/21 @ 07:[address] Odessa Valdes MD) Missed (~11/2019) Home Medications PNV 197-tvksd-bxyen-3-fish oil 2 ea PO DAILY 05/11/19 [History Last Taken 05/11/19 10:00 2 gummies] Allergy/AdvReac Type Severity Reaction Status Date / Time clindamycin Allergy Mild rash Verified 02/07/21 10:48 Family History Grandmother Hypertension Grandfather Hypertension Atrial fibrillation Lung cancer Other Heart disease Social History adopted: No household members: family housing: house number of children: 1 current occupational status: employed current occupation: [employer] Smoking Status: Never smoker second hand exposure: No alcohol intake: never substance use type: does not use caffeine: Yes what type of physical activity do you participate in: none seatbelt use: always do you feel safe at home: Yes additional social history: Lmhsecr-Gsgztgu-Ixdpikeh History 3 Elective abortions Hx Para 1 Spontaneous abortions 1 Hx # Term Pregnancies Ectopic pregnancies Hx # Pregnancies Multiple births # of living children 1 Past Pregnancies Del. Date Name GA/Weeks Outcome Route Bth Weight Infant Gen Labor Lgth Anesthesia Del Locatn Provider FOB 05/12/19 Briana 41 live - full term 8lbs Female 12 lucas rs epidural [facility] Dr. Lucio Marino Delivery Date: 05/12/19 [place]- IoL; 2nd degree laceration Kristie Barnes Visit Details Expected Delivery Route/Plan Labor Preferences- CB/BF classes: no labor support person: Ned labor intervention preferences: open to standard interventions pain management options preferred: epidural cut cord/dad catch: no - squeamish : bottle PP control planned: NFP discussed possible routes of delivery and associated risks: discussed possible delivery modalities and possible indications for each including R/B/A of , VAVD, FAVD, and CS. questions answered. special requests: [] Plans covid status: non immune, counseled regarding vaccination flu vaccine: [] tdap vaccine: 11/21 rhogam: 11/21 LARC form signed: [] movement and labor precautions reviewed. Problem list reviewed and updated with the most current plan of care details and appropriate orders placed. Relevant counseling for the gestational age provided. Continue routine care and follow up unless otherwise noted in visit notes/problem list details OB Flowsheet Initial Weight: Not Recorded Date -?-?-?-?-?-?-?-?-?-?-?-?- EGA Weight BP Urine Prot -?-?-?-?-?-?-?-?-?-?-?-?- Glucose FHR FuHt Pres Dilation -?-?-?-?-?-?-?-?-?-?-?-?- Effaced St Visit Note 07/18/20 -?-?-?-?-?-?-?-?-?-?-?-?- 10w 3d 290 lb 4 oz 138/88 -?-?-?-?-?-?-?-?-?-?-?-?- 168 -?-?-?-?-?-?-?-?-?-?-?-?- GP - CRL 31mm co nsistent with LMP. 08/15/20 -?-?-?-?-?-?-?-?-?-?-?-?- 14w 3d 293 lb 110/82 -?-?-?-?-?-?-?-?-?-?-?-?- 150 -?-?-?-?-?-?-?-?-?-?-?-?- GP - no cramping or bleeding. PRR. Needs syphilis screen with 28w labs. 09/12/20 -?-?--?-?-?-?-?-?-?-?-?-?- 18w 3d 295 lb 4 oz 132/78 Nega tive -?-?-?-?-?-?-?-?-?-?-?-?- Negative 150 -?-?-?-?-?-?-?-?-?-?-?-?- GP - no cramping or bleeding. Not yet feeling movement. Anatomy scan 10/01. No longer feeling nauseous. 10/10/20 -?-?-?-?-?-?-?-?-?-?-?-?- 22w 3d 291 lb 4 oz 118/70 Nega tive -?-?-?-?-?-?-?--?-?-?-?-?- Negative 148 -?-?-?-?-?-?-?-?-?-?-?-?- MH-No VB, LOF. G ood FM. Has rpt US 11/01 to complete anatomy and recheck partial placenta previa. Will also schedule at 32 wk 11/07/20 -?-?-?-?-?-?-?-?-?-?-?-?- 26w 3d 294 lb 110/82 -?-?-?-?-?-?-?-?-?-?-?-?- 145 26 -?-?-?-?-?-?-?-?-?-?-?-?- GP - no LOF, VB, DFM, ctx. Discussed GCT next visit. Looks like having a girl, but weren't completely certain on anatomy. Having echo due to trouble with cardiac views. 11/21/20 -?-?-?-?-?-?-?-?-?-?-?-?- 28w 3d 294 lb 2 oz 122/82 Nega tive -?-?-?-?-?-?-?-?-?-?-?-?- Negative 150 28 -?-?-?-?-?-?-?-?-?-?-?-?- GP - no LOF, VB, DFM, ctx. Passed GCT. Given TDAP and rhogam. 12/05/20 -?-?-?-?-?-?-?-?-?-?-?-?- 30w 3d 296 lb 118/72 Negative -?-?-?-?-?-?-?-?-?-?-?-?- Negative 140 30 -?-?-?-?-?-?-?-?-?-?-?-?- GP - no LOF, VB, DFM, ctx. Discussed NSTs at 32w for obesity. 12/20/20 -?-?-?-?-?-?-?-?-?-?-?-?- 32w 4d 291 lb 112/84 Negative -?-?-?-?-?-?-?-?-?-?-?-?- Negative 140 -?-?-?-?-?-?-?-?-?-?-?-?- SM- no vb lof go od fm no reuglar ctx discussed covid vaccine. nst 12/26/20 -?-?-?-?-?-?-?-?-?-?-?-?- 33w 3d 296 lb 118/78 Negative -?-?-?-?-?-?-?-?-?-?-?-?- Negative 150 -?-?-?-?-?-?-?-?-?-?-?-?- NST only reactiv e 01/02/21 -?-?-?-?-?-?-?-?-?-?-?-?- 34w 3d 294 lb 2 oz 128/76 Nega tive -?-?-?-?-?-?-?-?-?-?-?-?- Negative 150 34 -?-?-?-?-?-?-?-?-?-?-?-?- GP - no LOF, VB, DFM, ctx. NST reactive. 01/09/21 -?-?-?-?-?-?-?-?-?-?-?-?- 35w 3d 293 lb 122/78 Trace -?-?-?-?-?-?-?-?-?-?-?-?- Negative 150 35 -?-?-?-?-?-?-?-?-?-?-?-?- GP - NST only. R eactive. 01/16/21 -?-?-?-?-?-?-?-?-?-?-?-?- 36w 3d 293 lb 4 oz 134/78 Nega tive -?-?-?-?-?-?-?-?-?-?-?-?- Negative 140 36 Cephalic -?-?-?-?-?-?-?-?-?-?-?-?- GP - no LOF, VB, DFM, ctx. Discussed labor preferences and routes of delivery. GBS done today. 01/23/21 -?-?-?-?-?-?-?-?-?-?-?-?- 37w 3d 296 lb 4 oz 120/80 Nega tive -?-?-?-?-?-?-?-?-?-?-?-?- Negative 140 Cephalic -?-?-?-?-?-?-?-?-?-?-?-?- SM- no vb lof go od fm no reuglar ctx 01/30/21 -?-?-?-?-?-?-?-?-?-?-?-?- 38w 3d 296 lb 8 oz 120/70 Nega tive -?-?-?-?-?-?-?-?-?--?-?-?- Negative 140 Cephalic -?-?-?-?-?-?-?-?-?-?-?-?- GP - no LOF, VB, DFM, ctx. NST nonreactive - BPP scheduled today. 02/07/21 -?-?-?-?-?-?-?--?-?-?-?-?- 39w 4d 298 lb -?-?-?-?-?-?-?-?-?-?-?-?- 140 -?-?-?-?-?-?-?-?-?-?-?-?- SM- no vb crampi ng decreased movement sage WNL discussed IOL 02/08/21 -?-?-?-?-?-?-?-?-?-?-?-?- 39w 5d -?-?-?-?-?-?-?-?-?-?-?-?- -?-?-?-?-?-?-?-?-?-?-?-?- NST FHR Rate Baby A Baseline: 130 Variability:: Moderate Accelerations:: 15 x 15 Decelerations:: None NST Reactive:: Yes FHR Category:: Category I Uterine Activity:: irregular ROS Constitutional Constitutional: Reports systems reviewed and no addt'l complaints, except as documented Eyes Eyes: Denies change in vision ENT HEENT: Reports systems reviewed and no addt'l complaints, except as documented; Denies headache(s) Cardiovascular Cardiovascular: Reports systems reviewed and no addt'l complaints, except as documented; Denies chest pain or dyspnea Respiratory/Chest Respiratory/Chest: Reports systems reviewed and no addt'l complaints, except as documented Gastrointestinal Gastrointestinal: Reports systems reviewed and no addt'l complaints, except as documented; Denies abdominal pain Genitourinary Genitourinary: Reports systems reviewed and no addt'l complaints, except as documented, contractions Details: present (irregular) and movement Details: present; Denies dysuria or genital lesions Musculoskeletal Musculoskeletal: Reports systems reviewed and no addt'l complaints, except as documented Neurologic Neurologic: Reports systems reviewed and no addt'l complaints, except as documented Endocrine Endocrinology: Reports systems reviewed and no addt'l complaints, except as do cumented Physical Exam Const alert, oriented x3, no apparent distress and healthy appearing HEENT normocephalic and moist oral mucous membranes Head and Scalp: atraumatic Neck full ROM, no lymphadenopathy, supple and thyroid normal General: trachea midline Lymph Lymphatic: no lymphadenopathy noted Chest inspection of chest normal Resp normal respiratory effort Cardio regular rate GI normal to inspection, nondistended, normoactive bowel sounds, soft to palpation and non-tender Inspection: gravid external exam normal Manual OB Exam: estimated gestational size appropriate, presentation cephalic, dilated, effaced and station Extremity normal to inspection General Extremity: Negative for edema Skin no rashes or lesions noted Neuro no focal motor deficits and deep tendon reflexes 2+ bilaterally Motor Exam: strength 5/5 throughout and clonus absent Psych mental status grossly normal Labs Labs Labs: Blood Type A NEGATIVE Antibody Screen NEGATIVE Hct 34.8 % (37-47) L Hgb 11.2 g/dL (12.0-15.0) L Obstetrics US Syphilis Total Ab Non-reactive Rubella IgG Antibody Reactive (Nonreactive) Hep Bs Antigen Non-Reactive (Nonreactive) Neisseria gonorrhoeae DNA (JUDY) Negative (Negative) HIV 1&2 Antibody Non-Reactive (Nonreactive) C.trachomatis DNA (PCR) Negative (Negative) Glucose 1 Hr 50 gm 91 mg/dL (70-140) Rhogam given: Yes Miscellaneous Test Assessment & Plan (1) Positive GBS test: COMMENT: plan PCN in labor (2) UTI (urinary tract infection), affecting care of mother, antepartum: COMMENT: tx with ATB; needs repeat culture neg (3) H/O oligohydramnios in prior , currently : COMMENT: IOL at 41w. Growth at 36w. growth nl (4) Supervision of other normal : COMMENT: PRR RAYMUNDO: 02/10/21 Girl! PC: Briana Spouse: Ned (5) Obesity affecting : QUALIFIERS: Trimester: second trimester Qualified Code(s): O99.212 - Obesity complicating , second trimester COMMENT: NL 1 GCT at NOB. Weekly NSTs at 32w (6) Rh negative status during : QUALIFIERS: Trimester: second trimester Qualified Code(s): O26.892 - Other specified related conditions, second trimester; Z67.91 - Unspecified blood type, Rh negative COMMENT: A neg; Rhogam PRN and at 28 weeks (7) : QUALIFIERS: Weeks of gestation: 39 weeks Qualified Code(s): Z3A.39 - 39 weeks gestation of COMMENT: declines genetic and carrier, repeat anatomy us to complete views 2 weeks with pediatric cardiology (8) Encounter for induction of labor: COMMENT: IOL pitocin and epidural PRN (9) Decreased movements in third trimester:
[2021-02-08] MEDS: Lactated Ringers 1,000 ML 50 ML IV (07:40)
[2021-02-08 08:05] LABS: Absolute Lymphocyte Count 1.79 X10^3/uL (0.83-4.51); Absolute Neutrophil Count 9.3 X10^3/uL (2.0-7.7); Basophil# 0.03 X10^3/uL; Basophil% 0.3 % (0-1); Eosinophil# 0.11 X10^3/uL; Eosinophils% 0.9 % (0-5); Hematocrit 33.9 % (37-47); Hemoglobin 11.1 g/dL (12.0-15.0); Lymphocyte # 1.79 X10^3/ul (0.83-4.51); Lymphocyte % 14.9 % (19-41); Mean Corp Hgb Conc 32.7 g/dL (32-36); Mean Corpuscular Hgb 25.2 pg (27.0-32.0); Mean Corpuscular Volume 76.9 fL (81-99); Monocyte# 0.79 X10^3/uL; Monocyte% 6.6 % (0-10); NRBC Flagged by Analyzer 0 % (0-5); Neutrophil # 9.25 X10^3/uL (2.7-7.7); Platelet Count 290 K/mm3 (150-450); RBC Distribution Width CV 13.2 % (11.6-14.6); RBC Distribution Width SD 36.9 fl (35.1-43.9); Red Blood Count 4.41 M/mm3 (4.2-5.4)
[2021-02-08] MEDS: Oxytocin 30 units/NS 500 ml 30 UNITS/500 ML IV.SOLN IV (08:07)
[2021-02-08] MEDS: Lactated Ringers 500 ML 999 ML IV ×3 (12:48→19:48)
[2021-02-08] MEDS: Penicillin G 3,000,000 Units 50 ML 100 UNITS IV ×2 (14:00→18:16)
[2021-02-08] MEDS: fentaNYL-bupivacaine (epidural) 100 ML BAG EPIDURAL (17:35)
[2021-02-08] MEDS: Ondansetron 4 MG/2 ML Vial IV (17:50)
[2021-02-08] MEDS: Lactated Ringers 1,000 ML 200 ML IV (19:41)
--- NOTE | 2021-02-08 20:44 | OP.PCM_ITS ---
Assessment & Plan (1) Decreased movements in third trimester: (2) Encounter for induction of labor: COMMENT: IOL pitocin and epidural PRN (3) Positive GBS test: COMMENT: plan PCN in labor (4) UTI (urinary tract infection), affecting care of mother, antepartum: COMMENT: tx with ATB; needs repeat culture neg (5) H/O oligohydramnios in prior , currently : COMMENT: IOL at 41w. Growth at 36w. growth nl (6) Supervision of other normal : COMMENT: PRR RAYMUNDO: 02/10/21 Girl! PC: Briana Spouse: Ned (7) Obesity affecting : QUALIFIERS: Trimester: second trimester Qualified Code(s): O99.212 - Obesity complicating , second trimester COMMENT: NL 1 GCT at NOB. Weekly NSTs at 32w (8) Rh negative status during : QUALIFIERS: Trimester: second trimester Qualified Code(s): O26.892 - Other specified related conditions, second trimester; Z67.91 - Unspecified blood type, Rh negative COMMENT: A neg; Rhogam PRN and at 28 weeks (9) : QUALIFIERS: Weeks of gestation: 39 weeks Qualified Code(s): Z3A.39 - 39 weeks gestation of COMMENT: declines genetic and carrier, repeat anatomy us to complete views 2 weeks with pediatric cardiology Maternal Data Information RAYMUNDO Calculator Estimated Delivery Date Method Current WG Current Estimate 02/10/21 LMP (Certain) 39w 6d Other Estimates 02/10/21 Ultrasound #1 39w 6d Vaginal Delivery Operative Information Date of Procedure: 02/08/21 Pre-Operative Diagnosis: iol dec movement Post-Operative Diagnosis: same Surgery / Procedure Performed: Spontaneous Vaginal Delivery Type of Anesthesia: Epidural Special Medications: none Fluids Replaced: crystalloid Findings Description of Procedure: Patient began pushing and delivered the head in the JAX presentation. The head was delivered atraumatically and a loose nuchal cord ?1 was identified and the infant delivered through without complication. The anterior and posterior shoulders delivered without complication followed by the rest of the and the was placed on the maternal abdomen. Delayed cord clamping was employed for approximately 60 seconds. Cord was clamped and cut and gentle traction was applied to the cord and the placenta delivered spontaneously immediately following it was noted to be intact with three-vessel cord. The perineum and vagina were inspected and noted to have a small first- degree perineal laceration repaired in the usual fashion with 3-0 Vicryl Rapide. Patient and tolerated delivery well. Presentation: JAX Amniotic Membrane Rupture Type: Artificial Amniotic Fluid Description: Clear Placental Delivery Description: Spontaneous Placenta Disposition: [facility] Cord Vessel Description: 3 Vessels Cord Entanglement: None Delayed Cord Clamping: Yes Post Vaginal Delivery Medications Given After Delivery: IV Pitocin Episiotomy Description: None Laceration: Perineal Extension/lac and 1st degree Complication Complications: None Procedures Urinary/Genital [id number]: [id number] Vaginal Delivery [facility]
--- NOTE | 2021-02-08 20:47 | PCM.DC ---
Discharge Instructions Diet Discharge Diet: No restrictions Activity Discharge Activity: Return to Normal Activity, May Not Drive (while taking narcotic pain medications.) and May Shower May resume sexual activity in: 4-6 weeks Dressing / Incision Call your doctor if your incision/area has: Continuous Slow Oozing, Sudden Increased Bleeding, Increased Pain/ Swelling, Increased Redness and Foul Smelling Discharge Follow Up Care Please Follow Up With: Odessa Valdes MD When: Call [phone] to make an appointment with your doctor in 6 weeks. If you had elevated blood pressure or 4th degree laceration, you will need to be seen in 2 weeks. Test Results: Test results from this visit will be discussed in further detail at your follow-up appointment, if applicable. Discharge Plan Admission Admit Date/Time: 02/08/21 07:05 Primary Reason for Your Visit: vaginal delivery Attending Provider: Odessa Valdes Primary Care Provider: Caridad Kendrick Discharge Orders/Prescriptions Prescriptions: No Action PNV 121-fwskm-whtaw-3-fish oil 1 EACH tablet,chewable 2 ea PO DAILY RF: 0 Referrals / Follow Up: Caridad Kendrick PA [Primary Care Provider] - Disposition Disposition (needs filled in before D/C Order can be placed): Home, Self Care
[2021-02-08] MEDS: Oxytocin 30 units/NS 500 ml 30 UNITS/500 ML IV.SOLN 334 UNITS IV (21:15)
[2021-02-09] VITALS (9 sets, daily range): BP systolic 120–130; BP diastolic 60–79; PULSE 78–88; RESP 16; TEMP 36.3–36.9; O2SAT 93–98
--- NOTE | 2021-02-09 07:30 | PN.OBGYN_ITS ---
Subjective Subjective Patient doing well without complaints. Tolerating PO. Ambulating and voiding without difficulty. feeding well. Denies chest pain, shortness of breath, calf pain/swelling, fevers, chills, lightheadedness. Objective Data Objective Data Vital Signs: Vital Signs Temp Pulse Resp BP Pulse Ox 97.9 F 86 16 120/70 99 02/09/21 03:41 02/09/21 03:41 02/09/21 03:41 02/09/21 03:41 02/08/21 09:13 Oxygen Delivery Method Room Air Weight: 295 lb Body Mass Index (BMI) 47.6 Intake & Output: Intake and Output for Last 24 Hours 02/07/21 02/08/21 02/09/21 23:59 23:59 23:59 Intake Total 3919.94 / 3919.94 333 / 333 Output Total 300 / 300 400 / 400 Balance 3619.94 / 3619.94 -67 / -67 Lab / Micro Data Result Diagrams: 02/08/21 07:40 Labs: Laboratory Results - last 24 hr 02/08/21 07:40: WBC 12.0 H, RBC 4.41, Hgb 11.1 L, Hct 33.9 L, MCV 76.9 L, MCH 25.2 L, MCHC 32.7, RDW Std Deviation 36.9, RDW Coeff of Juan Carlos 13.2, Plt Count 290, MPV 12.0, Immature Gran % (Auto) 0.300, Neut % (Auto) 77.0 H, Lymph % (Auto) 14.9 L, Hamilton % (Auto) 6.6, Eos % (Auto) 0.9, Baso % (Auto) 0.3, Absolute Neuts (auto) 9.3 H, Absolute Lymphs (auto) 1.79, Nucleated RBC % 0 02/08/21 07:40: Blood Type A NEGATIVE, Antibody Screen NEGATIVE ROS Constitutional Constitutional: Reports systems reviewed and no addt'l complaints, except as documented Cardiovascular Cardiovascular: Reports systems reviewed and no addt'l complaints, except as documented Respiratory/Chest Respiratory/Chest: Reports systems reviewed and no addt'l complaints, except as documented Gastrointestinal Gastrointestinal: Reports systems reviewed and no addt'l complaints, except as documented Physical Exam Const alert, oriented x3 and no apparent distress HEENT Head and Scalp: atraumatic Resp normal respiratory effort GI soft to palpation and non-tender Bimanual Exam - Vag & Uterus: uterus non-tender Uterus Palpation: uterus fundus firm (below Umbilicus) Assessment & Plan (1) Vaginal delivery: COMMENT: iol 39w5d dec fm SM STEPH Hackett (2) Rh negative status during : QUALIFIERS: Trimester: second trimester Qualified Code(s): O26.892 - Other specified related conditions, second trimester; Z67.91 - Unspecified blood type, Rh negative COMMENT: A neg; Rhogam PRN and at 28 weeks
== END 2021-02-09 22:45 | disposition home or self-care (01) | DRG 807 ==
PROVIDERS: Admitting Provider Obstetrics & Gynecology; Visit Provider Obstetrics & Gynecology
DX: O69.81X0 Labor and delivery complicated by cord around neck, without compression, not applicable or unspecified (principal); Z37.0 Single live birth; O70.0 First degree perineal laceration during delivery; O99.214 Obesity complicating childbirth; O36.8130 Decreased fetal movements, third trimester, not applicable or unspecified; E66.9 Obesity, unspecified; Z3A.39 39 weeks gestation of pregnancy; O26.893 Other specified pregnancy related conditions, third trimester; Z67.91 Unspecified blood type, Rh negative
CPT/HCPCS: 59025; 59050; 85025; 86850; 86900; 86901; 99218; J7120; G0378; J2405

== ENCOUNTER → 2024-02-12 | Outpatient (CLI) | payer OTHER, SELFPAY ==
[2024-02-12 14:24] LABS: Absolute Lymphocyte Count 1.98 X10^3/uL (0.83-4.51); Absolute Neutrophil Count 7.6 X10^3/uL (2.0-7.7); Basophil# 0.05 X10^3/uL; Basophil% 0.5 % (0-1); Hematocrit 38.1 % (37-47); Hemoglobin 12.5 g/dL (12.0-15.0); Lymphocyte # 1.98 X10^3/ul (0.83-4.51); Lymphocyte % 18.9 % (19-41); Mean Corp Hgb Conc 32.8 g/dL (32-36); Mean Corpuscular Hgb 26.7 pg (27.0-32.0); Mean Corpuscular Volume 81.4 fL (81-99); Mean Platelet Vol. 12.7 fl (6.2-12.0); Monocyte# 0.73 X10^3/uL; NRBC Flagged by Analyzer 0 % (0-5); Neutrophil # 7.58 X10^3/uL (2.7-7.7); Neutrophil % 72.2 % (47-70); Platelet Count 255 K/mm3 (150-450); RBC Distribution Width CV 13.3 % (11.6-14.6); RBC Distribution Width SD 39.4 fl (35.1-43.9); Red Blood Count 4.68 M/mm3 (4.2-5.4); White Blood Count 10.5 K/mm3 (4.4-11.0)
[2024-02-12 15:13] LABS: HIV - WCH Non-Reactive (Nonreactive); Hepatitis B Surface Antigen Non-Reactive (Nonreactive); Hepatitis C Antibody Non-Reactive (Nonreactive); Rubella IgG Reactive (Nonreactive); Syphilis Antibodies Non-reactive
[2024-02-15 19:07] LABS: Chlamydia By Nucleic Acid AMP Negative (Negative); Gonococcus By Nucleic Acid AMP Negative (Negative)
[2024-02-19 00:06] LABS: HPV APTIMA, High Risk Negative (Negative)
== END | disposition home or self-care (01) ==
LOC: WOBLAB 13:46
PROVIDERS: Referring Provider Advanced Practice Midwife; Visit Provider Advanced Practice Midwife
DX: O99.210 Obesity complicating pregnancy, unspecified trimester (principal); Z3A.00 Weeks of gestation of pregnancy not specified
CPT/HCPCS: 36415; 83036; 85025; 86703; 86762; 86780; 86803; 86850; 86900; 86901; 87086; 87088; 87340; 87491; 87591; 87624; 88175; G0145

== ENCOUNTER → 2024-06-16 | Outpatient (CLI) | payer OTHER, SELFPAY ==
[2024-06-16 12:30] LABS: Absolute Lymphocyte Count 1.49 X10^3/uL (0.83-4.51); Absolute Neutrophil Count 7.4 X10^3/uL (2.0-7.7); Basophil# 0.04 X10^3/uL; Basophil% 0.4 % (0-1); Eosinophil# 0.08 X10^3/uL; Eosinophils% 0.8 % (0-5); Glucose Challenge Gest 1H 50g 96 mg/dL (70-140); Hematocrit 35.3 % (37-47); Hemoglobin 11.3 g/dL (12.0-15.0); Lymphocyte # 1.49 X10^3/ul (0.83-4.51); Lymphocyte % 15.6 % (19-41); Mean Corpuscular Hgb 26.3 pg (27.0-32.0); Mean Corpuscular Volume 82.3 fL (81-99); Mean Platelet Vol. 12.3 fl (6.2-12.0); Monocyte# 0.53 X10^3/uL; Monocyte% 5.6 % (0-10); NRBC Flagged by Analyzer 0 % (0-5); Neutrophil # 7.36 X10^3/uL (2.7-7.7); Neutrophil % 77.3 % (47-70); Platelet Count 246 K/mm3 (150-450); RBC Distribution Width CV 12.4 % (11.6-14.6); RBC Distribution Width SD 37.2 fl (35.1-43.9); Red Blood Count 4.29 M/mm3 (4.2-5.4); White Blood Count 9.5 K/mm3 (4.4-11.0)
[2024-06-16 12:59] LABS: HIV - WCH Non-Reactive (Nonreactive); Syphilis Antibodies Non-reactive
== END | disposition home or self-care (01) ==
LOC: BWCLAB 10:55
PROVIDERS: Advanced Practice Midwife; Obstetrics & Gynecology; Referring Provider Obstetrics & Gynecology; Visit Provider Obstetrics & Gynecology
DX: Z13.1 Encounter for screening for diabetes mellitus (principal)
CPT/HCPCS: 36415; 82950; 85025; 86703; 86780; 86850; 86900; 86901

== ENCOUNTER → 2024-07-22 | Outpatient (CLI) | payer OTHER, SELFPAY ==
--- NOTE | 2024-07-22 12:21 | US_ITS ---
PROCEDURE: OB LIMITED WITH BIOMETRICS 07/22/2024 REASON FOR EXAM: GROWTH TECHNIQUE: Transabdominal obstetric ultrasound performed for biometry. FINDINGS Transabdominal imaging. Single live intrauterine with cardiac activity seen at 127 beats per minute. Presentation is cephalic. Cervical length 4.7 cm and appears closed. Adnexa not visualized. DWAYNE 20.1 cm, maximum vertical pocket 6.3 cm Anterior placenta appears within limits DIMENSIONS: Biparietal Diameter: 8.2 cm/33 weeks 0 days Head Circumference: 29.8 cm/33 weeks 0 days Abdominal Circumference: 28.9 cm/32 weeks 6 days Femur Length: 6.3 cm/32 weeks 3 days FL/AC 21.7%, FL/BPD 76 %, FL/HC 21%, CI 80%, HC/AC 1.03 ESTIMATED WEIGHT: 2072 g +/-311 g ESTIMATED WEIGHT PERCENTILE (24+ weeks): 41.6% Estimated age by current ultrasound 32 weeks 4 days, RAYMUNDO 09/12/2024 age by LMP 32 weeks 6 days, RAYMUNDO 09/10/2024 US/OB Limited With Biometrics IMPRESSION: Single live intrauterine with biometrics as above. Reading Location: [id number]
== END | disposition home or self-care (01) ==
PROVIDERS: Referring Provider Obstetrics & Gynecology; Visit Provider Obstetrics & Gynecology
DX: O09.92 Supervision of high risk pregnancy, unspecified, second trimester (principal); Z3A.00 Weeks of gestation of pregnancy not specified; Z87.59 Personal history of other complications of pregnancy, childbirth and the puerperium
CPT/HCPCS: 76816

== ENCOUNTER → 2024-08-19 | Outpatient (CLI) | payer OTHER, SELFPAY ==
--- NOTE | 2024-08-19 12:47 | US_ITS ---
PROCEDURE: OB LIMITED WITH BIOMETRICS (USOBGROWTH), 08/19/2024 REASON FOR EXAM: GROWTH. Reportedly, 36 weeks and 6 days gestation with RAYMUNDO 09/10/2024 by previously established dates. TECHNIQUE: Grayscale and color/spectral doppler transabdominal pelvic ultrasound was performed with attention to the uterus and associated gestation. COMPARISON: 07/22/2024 FINDINGS: A single intrauterine gestational is identified. Cardiac activity: Present, 132 bpm. position: Cephalic. Amniotic Fluid Index: 19.4 (normal 5-25), deepest vertical pocket 5.7 (normal 2-8). Placenta: Anterior, without visualized or definite previa. biometry: Biparietal diameter: 8.6 cm, corresponding to 34 weeks 3 days. Head circumference: 32.6 cm, corresponding to 37 weeks 0 days. Occipitofrontal diameter: 11.4 cm, corresponding to 38 weeks 5 days. Abdominal circumference: 33.6 cm, corresponding to 37 weeks 3 days. Femur length: 7.0 cm, corresponding to 35 weeks 5 days. Composite gestational age: 36 weeks 3 days Estimated Weight (EFW): 2976 g +/-446 g, 47.9 percentile. Estimated delivery date (RAYMUNDO): 09/13/2024 based on today's measurements. Maternal anatomy: Cervix: Not visualized. Right ovary: Not visualized likely due to the gravid uterus. Left ovary: Not visualized likely due to the gravid uterus. Other: No significant visualized pelvic free fluid. US/OB Limited With Biometrics IMPRESSION: 1. Single live intrauterine at 36 weeks 3 days with RAYMUNDO 09/13/2024 ba sed on today's measurements, compatible with previously established dates. 2. Estimated weight 2976 g +/-446 g, 47.9 percentile based on provided pr eviously established dates. biometry as above. 3. Note that cervical length could not be obtained as the cervix was not discre tely identified. 4. Additional description as above. Reading Location: [id number]
== END | disposition home or self-care (01) ==
PROVIDERS: Referring Provider Obstetrics & Gynecology; Visit Provider Obstetrics & Gynecology
DX: O99.213 Obesity complicating pregnancy, third trimester (principal); Z3A.36 36 weeks gestation of pregnancy
CPT/HCPCS: 76816; 87081

== ENCOUNTER → 2024-08-25 | Outpatient (CLI) | payer OTHER, SELFPAY ==
[2024-08-25 12:06] LABS: Protein, Urine (Random) 39.4 mg/dL (0.0-12.0); Protein:Creat Ratio 259 mg/g CRE (0-200)
== END | disposition home or self-care (01) ==
LOC: LABSPEC 11:18
PROVIDERS: Referring Provider Obstetrics & Gynecology; Visit Provider Obstetrics & Gynecology
DX: R80.9 Proteinuria, unspecified (principal)
CPT/HCPCS: 82570; 84156

== ENCOUNTER 2024-09-11 17:00 | Inpatient (IN) | payer OTHER, SELFPAY ==
[2024-09-11] VITALS (9 sets, daily range): BP systolic 93–122; BP diastolic 53–72; PULSE 71–113; RESP 14–18; TEMP 36.2–37.2; O2SAT 97–98; BMI 46.6
[2024-09-11 17:48] LABS: Absolute Lymphocyte Count 1.72 X10^3/uL (0.83-4.51); Absolute Neutrophil Count 6.8 X10^3/uL (2.0-7.7); Basophil# 0.03 X10^3/uL; Basophil% 0.3 % (0-1); Eosinophils% 2.1 % (0-5); Hematocrit 32.9 % (37-47); Hemoglobin 10.7 g/dL (12.0-15.0); Lymphocyte # 1.72 X10^3/ul (0.83-4.51); Lymphocyte % 18.3 % (19-41); Mean Corp Hgb Conc 32.5 g/dL (32-36); Mean Corpuscular Hgb 24.4 pg (27.0-32.0); Mean Corpuscular Volume 75.1 fL (81-99); Mean Platelet Vol. 12.2 fl (6.2-12.0); Monocyte# 0.58 X10^3/uL; Monocyte% 6.2 % (0-10); NRBC Flagged by Analyzer 0 % (0-5); Neutrophil # 6.82 X10^3/uL (2.7-7.7); Neutrophil % 72.7 % (47-70); Platelet Count 246 K/mm3 (150-450); RBC Distribution Width CV 13.2 % (11.6-14.6); RBC Distribution Width SD 35.8 fl (35.1-43.9); Red Blood Count 4.38 M/mm3 (4.2-5.4); White Blood Count 9.4 K/mm3 (4.4-11.0)
[2024-09-11] MEDS: Oxytocin 15 Units/NS 250ml 15 UNITS/250 ML IV.SOLN 2 UNITS IV (18:29)
[2024-09-11] MEDS: Lactated Ringers 1,000 ML 50 ML IV (18:35)
[2024-09-11 18:46] LABS: Syphilis Antibodies Nonreactive (Nonreactive)
[2024-09-12] VITALS (59 sets, daily range): BP systolic 100–134; BP diastolic 53–73; PULSE 73–102; RESP 13–916; TEMP 36.2–36.9; O2SAT 97–100
[2024-09-12] MEDS: Lactated Ringers 1,000 ML 999 ML IV (01:11)
[2024-09-12] MEDS: fentaNYL-bupivacaine (epidural) 100 ML BAG EPIDURAL (04:00)
[2024-09-12] MEDS: Mag Hydrox/Al Hydrox/Simeth 30 ML UDC PO (04:53)
--- NOTE | 2024-09-12 05:51 | HP.PCM.OB_ITS ---
HPI - General General Date of Admission: 09/11/24 HPI Narrative TAVO ECHEVARRIA, is a 39 F who presents for IOL secondary to AMA Maternal Data Information RAYMUNDO Calculator Estimated Delivery Date Method Current WG Current Estimate 09/10/24 LMP (Certain) 40w 2d Other Estimates 09/12/24 Ultrasound #1 40w 0d PFSH PFSH Medical History Rh negative status during Vaginal delivery Missed (~11/2019) Home Medications ?Medication ?Instructions ?Recorded ?Last Taken ?Type 103-folic acid 400 2 ea PO DAILY vitamin 04/2702/07/21 19:00 History mcg-omeg3 32.5 mg-dha-fish oil 1 table t chew tablet aspirin 81 mg tablet,delayed 81 mg PO QDAY 0 06/30/24 Unknown History release (Adult Low Dose Aspirin) famotidine 10 mg tablet 10 mg PO QDAY heartburn 10/19 Unknown History Allergy/AdvReac Type Severity Reaction Status Date / Time clindamycin Allergy Mild rash Verified 09/11/24 18:19 Latex, Natural Rubber Allergy Mild Rash Verified 09/11/24 18:19 Family History Grandmother Hypertension Diabetes Maternal Grandfather Hypertension Atrial fibrillation Lung cancer Myocardial infarction Maternal Brother Diabetes Other Heart disease Surgical History [place] teeth extracted Social History adopted: No household members: family housing: house number of children: 2 current occupational status: employed current occupation: [employer] current occupational exposures/hazards: No pets and animals: No history of recent travel: No sexually active: Yes Smoking Status: Never smoker second hand exposure: No alcohol intake: never substance use type: does not use well-balanced diet: daily or most days caffeine: No eating out: rarely or never during the past year weight has: decreased > 10 lbs what type of physical activity do you participate in: none diya/latter-day: Rastafarian seatbelt use: always do you feel safe at home: Yes additional social history: Kahjpif-Elkbjuj-Vxumreod History 4 Elective abortions Hx Para 2 Spontaneous abortions 1 Hx # Term Pregnancies Ectopic pregnancies Hx # Pregnancies Multiple births # of living children 2 Past Pregnancies Del. Date Name GA/Weeks Outcome Route Bth Weight Infant Gen Labor Lgth Anesthesia Del Locatn Provider FOB 05/12/19 Briana 41 live - full term 8lbs Female 12 lucas rs epidural [facility] Dr. Lucio Marino 02/08/21 Roxann 39 live - full term epidu ral [facility] KENNA Santino Delivery Date: 05/12/19 Last Updated by: Kristie Barnes [place]- IoL; 2nd degree laceration Delivery Date: 02/08/21 Last Updated by: Kristie Barnes iol dec movement Visit Details Expected Delivery Route/Plan 4Labor Preferences- CB/BF classes: [] labor support person: [] labor intervention preferences: [] pain management options preferred: [] cut cord/dad catch: [] : [] PP control planned: [] discussed possible routes of delivery and associated risks: [] special requests: [] Plans Covid status: [] Flu vaccine: [] Tdap vaccine: given Rhogam: [given LARC form signed: [] movement and labor precautions reviewed. Problem list reviewed and updated with the most current plan of care details and appropriate orders placed. Relevant counseling for the gestational age provided. Continue routine care and follow up unless otherwise noted in visit notes/problem list details OB Flowsheet Initial Weight: 270 lb Date -?-?-?-?-?-?-?-?-?-?--?-?- EGA Weight BP Urine Prot -?-?-?-?-?-?-?-?-?-?-?-?- Glucose FHR FuHt Pres Dilation -?-?-?-?-?-?-?-?-?-?-?-?- Effaced St Visit Note 02/12/24 -?-?-?-?-?-?-?-?-?-?-?-?- 9w 6d 270 lb (+0 oz) 130/80 -?-?-?-?-?-?-?-?-?-?-?-?- 180 -?-?-?-?-?-?-?-?-?-?-?-?- KW- CRL cons wit h dates. declines NIPT 03/10/24 -?-?-?-?-?-?-?-?-?-?-?-?- 13w 5d 270 lb 6 oz (+6 oz) 136/85 Negative -?-?-?-?-?-?-?-?-?-?-?-?- Negative 157 -?-?-?-?-?-?-?-?-?-?-?-?- JV- heart tones and bedside scan today. blood work from last visit reviewed. anatomy scan ordered 04/07/24 -?-?-?-?-?-?-?-?-?-?-?-?- 17w 5d 272 lb 6 oz (+2 lb 6 oz) 110/70 Negative -?-?-?-?-?-?-?-?-?-?-?-?- Negative 136 -?-?-?-?-?-?-?-?-?-?-?-?- MH-No VB. Nausea resolved. No flutters yet. MFM US 05/0505/05/24 -?-?-?-?-?-?-?-?-?-?-?-?- 21w 5d 276 lb (+6 lb) 123/72 Negative -?-?-?-?-?-?-?-?-?-?-?-?- Negative 143 -?-?-?-?-?-?-?-?-?-?-?-?- JV- feeling some flutters. has anatomy scan this afternoon. No complaints. 06/02/24 -?-?-?-?-?-?-?-?-?-?-?-?- 25w 5d 279 lb 6 oz (+9 lb 6 oz) 122/79 Trace -?-?-?-?-?-?-?-?-?-?-?-?- Negative 135 -?-?-?-?-?-?-?-?-?-?-?-?- KW- no vb/ctx. g ood fm. LARC today. 28 week labs discussed. Had follow up US with MFM today 06/16/24 -?-?-?-?-?-?-?-?-?-?-?-?- 27w 5d 277 lb (+7 lb) 116/79 Negative -?-?-?-?-?-?-?-?-?-?-?-?- Negative 140 -?-?-?-?-?-?-?-?-?-?-?-?- SM- no vb lof go od fm no regular ctx cbc tdap rhogam today discused delivery by 40 due to AMA 06/30/24 -?-?-?-?-?-?-?-?-?-?-?-?- 29w 5d 279 lb 6 oz (+9 lb 6 oz) 126/80 Negative -?-?-?-?-?-?-?-?-?-?-?-?- Negative 140 33 -?-?-?-?-?-?-?-?-?-?-?-?- SM- no vb lof go od fm no regular ctx 07/14/24 -?-?-?-?-?-?-?-?-?-?-?-?- 31w 5d 279 lb 8 oz (+9 lb 8 oz) 118/81 Negative -?-?-?--?-?-?-?-?-?-?-?-?- Negative 141 32.5 -?-?-?-?-?-?-?-?-?-?-?-?- JV- no complaint s today. growth scan next week. 07/28/24 -?-?-?-?-?-?-?-?-?-?-?-?- 33w 5d 279 lb 4 oz (+9 lb 4 oz) 108/75 Negative -?-?-?-?-?-?-?-?-?-?-?-?- Negative 155 34 -?-?-?-?-?-?-?-?-?-?-?-?- KW- no vb/lof/ct x. good fm. NSTs starting next week. 08/04/24 -?-?-?-?-?-?-?-?-?-?-?-?- 34w 5d 280 lb (+10 lb) 132/80 Negative -?-?-?-?--?-?-?-?-?-?-?-?- Negative 135 -?-?-?-?-?-?-?-?-?-?-?-?- KW- Work in for JV. novb/lof/ctx. good fm. US scheduled for 36 weeks. NST reactive 08/11/24 -?-?-?-?-?-?-?-?-?-?-?-?- 35w 5d 279 lb 6 oz (+9 lb 6 oz) 116/81 Negative -?-?-?-?-?-?-?-?-?-?-?-?- Negative 130 35 -?-?-?--?-?-?-?-?-?-?-?-?- JV- no lof, vagi nal bleeding, or dec fm. nst reactive.plan gbs next visit. 08/19/24 -?-?-?-?-?-?-?-?-?-?-?-?- 36w 6d 281 lb 2 oz (+11 lb 2 oz) 112/73 Negative -?-?-?-?-?-?-?-?-?-?-?-?- Negative 125 37 Cephalic 2 .5 -?-?-?-?-?-?-?-?-?-?-?-?- 70 -2 KW- no vb/ lof/ctx. good fm. NST reactive growth US pending but DWAYNE appears normal. GBS today. 08/25/24 -?-?-?-?-?-?-?-?-?-?-?-?- 37w 5d 282 lb 4 oz (+12 lb 4 oz) 128/87 1+ -?-?-?-?-?-?-?-?-?-?-?-?- Negative 140 Cephalic -?-?-?-?-?-?-?-?-?-?-?-?- SM- no vb lof go od fm n oreuglar ctx urine protein sent 09/01/24 -?-?-?-?-?-?-?-?-?-?-?-?- 38w 5d 286 lb 2 oz (+16 lb 2 oz) 114/79 Negative -?-?-?-?-?-?-?-?-?-?-?-?- Negative 140 Cephalic -?-?-?-?-?-?-?-?-?-?-?-?- JV- NST reactive . IOL set up . no lof ,vaginal bleeding, or dec fm. 09/08/24 -?-?-?-?-?-?-?-?-?-?-?-?- 39w 5d 285 lb 6 oz (+15 lb 6 oz) 129/83 Negative -?-?-?-?-?-?-?-?-?-?-?-?- Negative 140 -?-?-?-?-?-?-?-?-?-?-?-?- SM- nst done, pl anning IOL now on thursday NST FHR Rate Baby A Baseline: 140 Variability:: Moderate Accelerations:: 15 x 15 Decelerations:: None NST Reactive:: Yes FHR Category:: Category I Uterine Activity:: q3-5 ROS Constitutional Constitutional: Reports systems reviewed and no addt'l complaints, except as documented ENT HEENT: Reports systems reviewed and no addt'l complaints, except as documented Cardiovascular Cardiovascular: Reports systems reviewed and no addt'l complaints, except as documented Respiratory/Chest Respiratory/Chest: Reports systems reviewed and no addt'l complaints, except as documented Gastrointestinal Gastrointestinal: Reports systems reviewed and no addt'l complaints, except as documented and nausea; Denies abdominal pain Genitourinary Genitourinary: Reports systems reviewed and no addt'l complaints, except as documented, contractions Details: present and frequency (regular ) and movement Details: present Musculoskeletal Musculoskeletal: Reports systems reviewed and no addt'l complaints, except as documented Integumentary Integumentary: Reports as per HPI Neurologic Neurologic: Reports systems reviewed and no addt'l complaints, except as documented Endocrine Endocrinology: Reports systems reviewed and no addt'l complaints, except as documented Vital Signs Vital Signs Vital Signs: 09/11/24 17:50 09/11/24 17:50 09/11/24 17:50 Temperature Temperature Source Temporal Pulse Rate 110 H Respiratory Rate 14 Blood Pressure BP Systolic BP Diastolic Pulse Ox 09/11/24 17:50 09/11/24 17:50 09/11/24 17:51 Temperature 98.9 F Temperature Source Pulse Rate Respiratory Rate Blood Pressure 122/72 H BP Systolic 122 BP Diastolic 72 Pulse Ox 98 09/11/24 17:51 09/11/24 17:51 09/11/24 17:56 Temperature Temperature Source Pulse Rate 107 H 113 H Respiratory Rate Blood Pressure BP Systolic BP Diastolic Pulse Ox 97 09/11/24 17:56 09/11/24 19:20 09/11/24 19:20 Temperature Temperature Source Pulse Rate 90 Respiratory Rate Blood Pressure 121/67 H BP Systolic 121 BP Diastolic 67 Pulse Ox 98 09/11/24 19:20 09/11/24 19:20 09/11/24 19:20 Temperature Temperature Source Temporal Pulse Rate Respiratory Rate 18 Blood Pressure BP Systolic BP Diastolic Pulse Ox 97 09/11/24 19:20 09/11/24 20:22 09/11/24 20:22 Temperature 98.0 F Temperature Source Pulse Rate 82 Respiratory Rate Blood Pressure BP Systolic BP Diastolic Pulse Ox 97 09/11/24 20:22 09/11/24 20:22 09/11/24 20:22 Temperature Temperature Source Temporal Pulse Rate 87 Respiratory Rate Blood Pressure 114/72 BP Systolic 114 BP Diastolic 72 Pulse Ox 09/11/24 20:22 09/11/24 20:22 09/11/24 21:26 Temperature 97.2 F L Temperature Source Temporal Pulse Rate Respiratory Rate 18 Blood Pressure BP Systolic BP Diastolic Pulse Ox 09/11/24 21:26 09/11/24 21:26 09/11/24 21:26 Temperature Temperature Source Pulse Rate 76 Respiratory Rate 18 Blood Pressure 97/55 L BP Systolic 97 BP Diastolic 55 Pulse Ox 09/11/24 21:26 09/11/24 21:27 09/11/24 21:27 Temperature 97.5 F L Temperature Source Pulse Rate 84 Respiratory Rate Blood Pressure BP Systolic BP Diastolic Pulse Ox 98 09/11/24 22:25 09/11/24 22:25 09/11/24 22:25 Temperature Temperature Source Temporal Pulse Rate 85 Respiratory Rate Blood Pressure 107/59 L BP Systolic 107 BP Diastolic 59 Pulse Ox 09/11/24 22:25 09/11/24 22:25 09/11/24 23:19 Temperature 97.8 F Temperature Source Pulse Rate Respiratory Rate 16 Blood Pressure 93/53 L BP Systolic 93 BP Diastolic 53 Pulse Ox 09/11/24 23:19 09/11/24 23:19 09/11/24 23:19 Temperature Temperature Source Temporal Pulse Rate 71 Respiratory Rate 16 Blood Pressure BP Systolic BP Diastolic Pulse Ox 09/11/24 23:19 09/12/24 00:23 09/12/24 00:23 Temperature 97.6 F L Temperature Source Temporal Pulse Rate Respiratory Rate 16 Blood Pressure BP Systolic BP Diastolic Pulse Ox 09/12/24 00:23 09/12/24 00:24 09/12/24 00:24 Temperature 97.2 F L Temperature Source Pulse Rate 76 Respiratory Rate Blood Pressure 100/56 L BP Systolic 100 BP Diastolic 56 Pulse Ox 09/12/24 00:24 09/12/24 01:35 09/12/24 01:35 Temperature Temperature Source Pulse Rate 77 Respiratory Rate Blood Pressure 134/69 H BP Systolic 134 BP Diastolic 69 Pulse Ox 97 09/12/24 01:35 09/12/24 01:35 09/12/24 01:35 Temperature Temperature Source Temporal Pulse Rate Respiratory Rate 16 Blood Pressure BP Systolic BP Diastolic Pulse Ox 99 09/12/24 01:35 09/12/24 02:29 09/12/24 02:29 Temperature 97.4 F L Temperature Source Pulse Rate 85 Respiratory Rate Blood Pressure 123/71 H BP Systolic 123 BP Diastolic 71 Pulse Ox 09/12/24 02:29 09/12/24 02:29 09/12/24 02:29 Temperature 97.6 F L Temperature Source Temporal Pulse Rate Respiratory Rate 18 Blood Pressure BP Systolic BP Diastolic Pulse Ox 09/12/24 03:22 09/12/24 03:22 09/12/24 03:22 Temperature Temperature Source Temporal Pulse Rate 73 Respiratory Rate Blood Pressure 109/67 BP Systolic 109 BP Diastolic 67 Pulse Ox 09/12/24 03:22 09/12/24 03:44 09/12/24 03:44 Temperature 98.0 F Temperature Source Pulse Rate 88 Respiratory Rate Blood Pressure BP Systolic BP Diastolic Pulse Ox 100 09/12/24 03:44 09/12/24 03:44 09/12/24 03:44 Temperature Temperature Source Temporal Pulse Rate 90 Respiratory Rate Blood Pressure 127/73 H BP Systolic 127 BP Diastolic 73 Pulse Ox 09/12/24 03:44 09/12/24 03:44 09/12/24 03:49 Temperature 98.1 F Temperature Source Pulse Rate 94 Respiratory Rate 16 Blood Pressure BP Systolic BP Diastolic Pulse Ox 09/12/24 03:49 09/12/24 03:50 09/12/24 03:50 Temperature Temperature Source Pulse Rate 91 Respiratory Rate Blood Pressure 109/59 L BP Systolic 109 BP Diastolic 59 Pulse Ox 100 09/12/24 03:50 09/12/24 03:54 09/12/24 03:54 Temperature Temperature Source Pulse Rate 88 Respiratory Rate 18 Blood Pressure BP Systolic BP Diastolic Pulse Ox 100 09/12/24 03:54 09/12/24 03:54 09/12/24 03:54 Temperature Temperature Source Pulse Rate 77 Respiratory Rate 16 Blood Pressure 118/58 L BP Systolic 118 BP Diastolic 58 Pulse Ox 09/12/24 04:00 09/12/24 04:00 09/12/24 04:00 Temperature Temperature Source Pulse Rate 81 Respiratory Rate Blood Pressure 129/72 H BP Systolic 129 BP Diastolic 72 Pulse Ox 100 09/12/24 04:00 09/12/24 04:04 09/12/24 04:04 Temperature Temperature Source Pulse Rate 81 Respiratory Rate 18 Blood Pressure 113/56 L BP Systolic 113 BP Diastolic 56 Pulse Ox 09/12/24 04:04 09/12/24 04:05 09/12/24 04:05 Temperature Temperature Source Pulse Rate 89 Respiratory Rate 18 Blood Pressure BP Systolic BP Diastolic Pulse Ox 99 09/12/24 04:10 09/12/24 04:10 09/12/24 04:10 Temperature Temperature Source Pulse Rate 81 Respiratory Rate Blood Pressure 113/55 L BP Systolic 113 BP Diastolic 55 Pulse Ox 99 09/12/24 04:10 09/12/24 04:10 09/12/24 04:15 Temperature Temperature Source Pulse Rate Respiratory Rate 18 18 Blood Pressure 108/59 L BP Systolic 108 BP Diastolic 59 Pulse Ox 09/12/24 04:15 09/12/24 04:15 09/12/24 04:15 Temperature Temperature Source Pulse Rate 83 Respiratory Rate 18 Blood Pressure BP Systolic BP Diastolic Pulse Ox 99 09/12/24 04:19 09/12/24 04:19 09/12/24 04:19 Temperature Temperature Source Pulse Rate 85 Respiratory Rate 16 Blood Pressure 105/55 L BP Systolic 105 BP Diastolic 55 Pulse Ox 09/12/24 04:20 09/12/24 04:20 09/12/24 04:24 Temperature Temperature Source Pulse Rate 94 Respiratory Rate Blood Pressure 110/60 BP Systolic 110 BP Diastolic 60 Pulse Ox 99 09/12/24 04:24 09/12/24 04:24 09/12/24 04:25 Temperature Temperature Source Pulse Rate 82 84 Respiratory Rate 16 Blood Pressure BP Systolic BP Diastolic Pulse Ox 09/12/24 04:25 09/12/24 04:28 09/12/24 04:29 Temperature Temperature Source Pulse Rate Respiratory Rate 16 Blood Pressure 112/59 L BP Systolic 112 BP Diastolic 59 Pulse Ox 97 09/12/24 04:29 09/12/24 04:29 09/12/24 04:30 Temperature Temperature Source Pulse Rate 81 81 Respiratory Rate 16 Blood Pressure BP Systolic BP Diastolic Pulse Ox 09/12/24 04:30 09/12/24 05:47 09/12/24 05:47 Temperature Temperature Source Pulse Rate 85 Respiratory Rate Blood Pressure 125/55 H BP Systolic 125 BP Diastolic 55 Pulse Ox 98 09/12/24 05:47 09/12/24 05:47 09/12/24 05:47 Temperature 97.4 F L Temperature Source Temporal Pulse Rate Respiratory Rate 18 Blood Pressure BP Systolic BP Diastolic Pulse Ox 09/12/24 05:48 09/12/24 05:48 Temperature Temperature Source Pulse Rate 89 Respiratory Rate Blood Pressure BP Systolic BP Diastolic Pulse Ox 98 Weight Weight: 289 lb Body Mass Index (BMI) 46.6 Physical Exam Const alert, oriented x3 and healthy appearing Constitutional Narrative: uncomfortable with contractions HEENT normocephalic and moist oral mucous membranes Head and Scalp: atraumatic Neck full ROM, no lymphadenopathy, supple and thyroid normal General: trachea midline Thyroid: thyroid normal Lymph Lymphatic: no lymphadenopathy noted Chest inspection of chest normal Resp normal respiratory effort Cardio regular rate GI soft to palpation and non-tender GI Narrative: gravid Inspection: gravid external exam normal Bimanual Exam - Vag & Uterus: uterus non-tender Manual OB Exam: estimated gestational size appropriate, presentation cephalic, dilated, effaced and station Extremity normal to inspection General Extremity: Negative for edema Skin no rashes or lesions noted Neuro deep tendon reflexes 2+ bilaterally Motor Exam: strength 5/5 throughout and clonus absent Psych mental status grossly normal Labs Labs Labs: Blood Type A NEGATIVE Antibody Screen NEGATIVE Hct 32.9 % (37-47) L Hgb 10.7 g/dL (12.0-15.0) L Obstetrics Ultrasound Syphilis Total Ab Nonreactive (Nonreactive) Rubella IgG Antibody Reactive (Nonreactive) Hep Bs Antigen Non-Reactive (Nonreactive) Hepatitis C Antibody Non-Reactive (Nonreactive) Chlamydia DNA (JUDY) Negative (Negative) N.gonorrhoeae DNA (JUDY) Negative (Negative) HIV 1&2 Antibody Non-Reactive (Nonreactive) Glucose 1 Hr 50 gm 96 mg/dL (70-140) Rhogam given: Yes Miscellaneous Test Assessment & Plan (1) AMA (advanced maternal age) multigravida 35+: COMMENT: delivery by 40 weeks (2) History of oligohydramnios: (3) Obesity affecting : QUALIFIERS: Trimester: first trimester Obesity type affecting : unspecified obesity Qualified Code(s): O99.211 - Obesity complicating , first trimester COMMENT: BMI 43-a1c nl (4) Supervision of high-risk : QUALIFIERS: Trimester: second trimester Qualified Code(s): O09.92 - Supervision of high risk , unspecified, second trimester COMMENT: PRR, G4,P2, RAYMUNDO 09/10/24, boy Roxann Adorno, Ned (5) : QUALIFIERS: Weeks of gestation: 39 weeks Qualified Code(s): Z3A.39 - 39 weeks gestation of COMMENT: GBS neg,discussed NIPT & Carrier testing-DECLINES, nl anatomy (6) Rh negative status during : QUALIFIERS: Trimester: second trimester Qualified Code(s): O26.892 - Other specified related conditions, second trimester; Z67.91 - Unspecified blood type, Rh negative COMMENT: Rhogam at 28 wks & PRN bleeding PLAN: Plan Patient presents IOL, plan management for with pitocin/AROM. Pain management: plans epidural. GBS negative. Management of any complications: ama I have reviewed the [facility] and made any clinically relevant updates.
--- NOTE | 2024-09-12 05:52 | EX.PCM.OBVAG ---
Assessment & Plan (1) AMA (advanced maternal age) multigravida 35+: COMMENT: delivery by 40 weeks (2) History of oligohydramnios: (3) Obesity affecting : QUALIFIERS: Trimester: first trimester Obesity type affecting : unspecified obesity Qualified Code(s): O99.211 - Obesity complicating , first trimester COMMENT: BMI 43-a1c nl (4) Supervision of high-risk : QUALIFIERS: Trimester: second trimester Qualified Code(s): O09.92 - Supervision of high risk , unspecified, second trimester COMMENT: PRR, G4,P2, RAYMUNDO 09/10/24, Roxann Matta, Ned (5) : QUALIFIERS: Weeks of gestation: 39 weeks Qualified Code(s): Z3A.39 - 39 weeks gestation of COMMENT: GBS neg,discussed NIPT & Carrier testing-DECLINES, nl anatomy (6) Rh negative status during : QUALIFIERS: Trimester: second trimester Qualified Code(s): O26.892 - Other specified related conditions, second trimester; Z67.91 - Unspecified blood type, Rh negative COMMENT: Rhogam at 28 wks & PRN bleeding (7) Vaginal delivery: COMMENT: iol ama sm arlene cunha Maternal Data Information RAYMUNDO Calculator Estimated Delivery Date Method Current WG Current Estimate 09/10/24 LMP (Certain) 40w 2d Other Estimates 09/12/24 Ultrasound #1 40w 0d Vaginal Delivery Maternal Presentation Maternal Presentation: see assessment and plan Vaginal Delivery Information Procedure Performed: Spontaneous Vaginal Delivery Surgeon/Practitioner: Odessa Valdes Pre-Procedure Diagnosis: see assessment and plan Post-Procedure Diagnosis: same Type of anesthesia: Epidural Estimated Blood Loss: 200 Findings Description of procedure: Patient began pushing and delivered the head in the JOANNA presentation. The head was delivered atraumatically The anterior and posterior shoulders delivered without complication followed by the rest of the and the infant was placed on the maternal abdomen. Delayed cord clamping was employed for approximately 60 seconds. Cord was clamped and cut and gentle traction was applied to the cord and the placenta delivered spontaneously immediately following it was noted to be intact with three-vessel cord. The perineum and vagina were inspected and was noted to have a second -degree laceration that was repaired in the usual fashion with 3-0 vicryl rapide and a large inclusion cyst was seen on te hposterior wall that was drained and oversewn with 3-0 rapide . EBL was 200. Patient and infant tolerated delivery well. Presentation: Vertex Placental Delivery Description: Spontaneous Specimen collected: Yes Description of specimen(s) removed: placenta Ball Assembler hand rigger: No Post Vaginal Deli Medications given after delivery: Other (pitocin) Complication Complications: No Multi Select Codes Urinary/Genital Urinary/Genital CPT Codes: 43784 Vaginal Delivery [facility]
--- NOTE | 2024-09-12 05:57 | DCINST_ITS ---
Discharge Instructions Diet Discharge Diet: No restrictions DC O2, CPAP, BIPAP needs Home O2 Discharge instructions: No Dressing / Incision Discharge Activity: Return to Normal Activity, May Not Drive (while taking narcotic pain medications.) and May Shower May resume sexual activity in: 4-6 weeks Dressing / Incision Call your doctor if your incision/area has: Continuous Slow Oozing, Sudden Increased Bleeding, Increased Pain/ Swelling, Increased Redness and Foul Smelling Discharge Follow Up Care Please Follow Up With: Odessa Valdes MD When: Call [phone] to make an appointment with your doctor in 6 weeks. If you had elevated blood pressure or 4th degree laceration, you will need to be seen in 2 weeks. Test Results: Test results from this visit will be discussed in further detail at your follow- up appointment, if applicable. Discharge Plan Admission Admit Date/Time: 09/11/24 17:00 Attending Provider: Odessa Valdes Primary Care Provider: Caridad Kendrick Discharge Orders/Prescriptions Prescriptions: No Action famotidine 10 mg tablet 10 mg PO QDAY aspirin [Adult Low Dose Aspirin] 81 mg tablet,delayed release (DR/EC) 81 mg PO QDAY PNV [id number]-fish oil 1 EACH tablet,chewable 2 ea PO DAILY Referrals / Follow Up: Caridad Kendrick PA [Primary Care Provider] - Disposition Disposition (needs filled in before D/C Order can be placed): Home, Self Care
[2024-09-12] MEDS: Oxytocin 15 Units/NS 250ml 15 UNITS/250 ML IV.SOLN 83 UNITS IV (06:10)
[2024-09-12] MEDS: Acetaminophen 500 MG Tablet 1000 MG PO ×2 (09:19→19:54)
[2024-09-13 01:25] VITALS: BP 132/80; PULSE 71; RESP 16; TEMP 36.6
[2024-09-13 06:00] VITALS: BP 113/66; PULSE 77; RESP 16; TEMP 36.6
--- NOTE | 2024-09-13 07:25 | PN.OBGYN_ITS ---
Subjective Subjective Patient doing well without complaints. Tolerating PO. Ambulating and voiding without difficulty. Feeding well. Denies chest pain, shortness of breath, calf pain/swelling, fevers, chills, lightheadedness. Objective Data Objective Data Vital Signs: Vital Signs Temp Pulse Resp BP Pulse Ox O2 Del Method 97.8 F 77 16 113/66 99 Room Air 09/13/24 06:00 09/13/24 06:00 09/13/24 06:00 09/13/24 06:00 09/12/24 16:15 09/13/24 06:00 Oxygen Delivery Method Room Air Weight: 289 lb Body Mass Index (BMI) 46.6 Intake & Output: Intake and Output for Last 24 Hours 09/11/24 09/12/24 09/13/24 23:59 23:59 23:59 Intake Total 221.20 / 221.20 2588.80 / 2588.80 Output Total 800 / 800 Balance 221.20 / 221.20 1788.80 / 1788.80 Lab / Micro Data Attestation: I reviewed the patient's lab results. 09/11/24 17:35 ROS Constitutional Constitutional: Reports systems reviewed and no addt'l complaints, except as documented; Denies anorexia or headache(s) Cardiovascular Cardiovascular: Reports systems reviewed and no addt'l complaints, except as documented; Denies dizziness, dyspnea, nausea or tachypnea Respiratory/Chest Respiratory/Chest: Reports systems reviewed and no addt'l complaints, except as documented; Denies cough, dyspnea, shortness of breath at rest or tachypnea Gastrointestinal Gastrointestinal: Reports systems reviewed and no addt'l complaints, except as documented; Denies abdominal pain, constipation or nausea Genitourinary Genitourinary: Reports systems reviewed and no addt'l complaints, except as documented; Denies burning urination, difficulty urinating, dysuria, urinary frequency or urinary incontinence Musculoskeletal Musculoskeletal: Reports systems reviewed and no addt'l complaints, except as documented Integumentary Integumentary: Reports systems reviewed and no addt'l complaints, except as documented Neurologic Neurologic: Reports systems reviewed and no addt'l complaints, except as documented; Denies abnormal speech, dizziness or headache(s) Psychiatric Psychiatric: Reports systems reviewed and no addt'l complaints, except as documented Endocrine Endocrinology: Reports systems reviewed and no addt'l complaints, except as documented Hematologic/Lymphatic Hematologic/Lymphatic: Reports systems reviewed and no addt'l complaints, except as documented Physical Exam Const alert, oriented x3 and no apparent distress Neck full ROM Resp normal respiratory effort, normal air movement and no retractions Effort and Inspection: able to speak in complete sentences and symmetric chest movement GI soft to palpation Bladder / Kidney Exam: bladder normal to palpation Uterus Palpation: uterus fundus firm Extremity normal to inspection and full ROM Psych mental status grossly normal, thought process normal and cooperative Assessment & Plan (1) Vaginal delivery: COMMENT: iol ama sm arlene cunha PLAN: s/p PPD # 1 1. routine post delivery care 2. breast feeding- support given 3. rh positive 4. rubella immune 5. Discharge home (2) AMA (advanced maternal age) multigravida 35+: COMMENT: delivery by 40 weeks (3) History of oligohydramnios: (4) Obesity affecting : QUALIFIERS: Trimester: first trimester Obesity type affecting : unspecified obesity Qualified Code(s): O99.211 - Obesity complicating , first trimester COMMENT: BMI 43-a1c nl (5) Supervision of high-risk : QUALIFIERS: Trimester: second trimester Qualified Code(s): O09.92 - Supervision of high risk , unspecified, second trimester COMMENT: PRR, G4,P2, RAYMUNDO 09/10/24, arlene Warren Roxann, Ned (6) : QUALIFIERS: Weeks of gestation: 39 weeks Qualified Code(s): Z 3A.39 - 39 weeks gestation of COMMENT: GBS neg,discussed NIPT & Carrier testing-DECLINES, nl anatomy (7) Rh negative status during : QUALIFIERS: Trimester: second trimester Qualified Code(s): O 26.892 - Other specified related conditions, second trimester; Z67.91 - Unspecified blood type, Rh negative COMMENT: Rhogam at 28 wks & PRN bleeding Charges/Coding Multi Select Codes Urinary/Genital Urinary/Genital CPT Codes: No Charge
[2024-09-13 12:00] VITALS: BP 117/73; PULSE 87; RESP 16; TEMP 36.8
== END 2024-09-13 17:55 | disposition home or self-care (01) | DRG 807 ==
PROVIDERS: Admitting Provider Obstetrics & Gynecology; Visit Provider Obstetrics & Gynecology
DX: O70.1 Second degree perineal laceration during delivery (principal); Z37.0 Single live birth; N96 Recurrent pregnancy loss; O99.214 Obesity complicating childbirth; Z3A.39 39 weeks gestation of pregnancy; Z87.59 Personal history of other complications of pregnancy, childbirth and the puerperium; O26.893 Other specified pregnancy related conditions, third trimester; Z67.91 Unspecified blood type, Rh negative; O99.893 Other specified diseases and conditions complicating puerperium
CPT/HCPCS: 59025; 59050; 85025; 86780; 86850; 86900; 86901; 99221; G0378